=== PATIENT | male | born 1950 | race African-American/Black ===

== ENCOUNTER 2022-07-12 13:13 | Inpatient (IN) | payer MEDICARE, MEDICAID ==
[~2022-07-12] VITALS: Ht 170.2 cm; Wt 61.3 kg
[2022-07-12] MEDS ORDERED: IOHEXOL-350 100 ML BOTTLE ONE ×3 (13:34→23:26)
[2022-07-12 14:34] LABS: BASOPHILS % 0.5 % (0.0-2.0); EOSINOPHILS % 2.5 % (0.0-5.0); HEMATOCRIT. 35.1 % (42.0-52.0); LYMPHOCYTES % 25.1 % (20.0-50.0); MEAN CORPUSCULAR HEMOGLOBIN 30.7 pg (28.0-32.0); MEAN CORPUSCULAR VOLUME 97.6 fL (80.0-94.0); MEAN PLATELET VOLUME 11.1 fl (7.4-10.4); MONOCYTES % 13.2 % (2.0-8.0); NEUTROPHILS % 58.7 % (40.0-76.0); PLATELET 110 x1000/uL (130-400); RED BLOOD CELL COUNT 3.59 mill/uL (4.7-6.1); RED CELL DISTRIBUTION WIDTH 17.4 % (11.6-14.6)
[2022-07-12 14:44] LABS: CHLORIDE 87 mEq/L (98-107)
[2022-07-12] MEDS ORDERED: PIPERACILLIN/TAZ 3.375G PREMIX 50 ML IV ONE (14:45)
[2022-07-12 14:52] LABS: ETHANOL BLOOD < 10 mg/dL
[2022-07-12] MEDS: VANCOMYCIN 1G PREMIX 200 ML IV SCH ×2 (15:14→20:14)
[2022-07-12 16:26] LABS: BG BASE EXCESS 13.8 mmol/L (-2.0-2.0); BG CARBOXYHEMOGLOBIN 0.8 % (0.5-1.5); BG DEOXYHEMOGLOBIN 2.3 % (0.0-5.0); BG HCO3 ACT 37.4 mmol/L (22.0-26.0); BG METHEMOGLOBIN 0.1 % (0.0-1.5); BG OXYGEN SATURATION 97.7 % (92.0-98.5); BG OXYHEMOGLOBIN 96.8 % (94.0-97.0); BG PCO2 42.2 mmHg (35.0-45.0); BG PH 7.565 (7.350-7.450); BG PO2 92.1 mmHg (75.0-100.0); BG SAMPLE SITE RIGHT BRACHIAL; BG TOTAL HEMOGLOBIN 12.5 g/dL (12.0-18.0); BG VENT MODE VENT - AC
[2022-07-12] MEDS ORDERED: PROPOFOL 10MG/ML 100ML 100 ML IV SCH (17:45)
[2022-07-12 17:49] LABS: CLARITY URINE CLEAR (CLEAR); COLOR URINE YELLOW (YELLOW); KETONES URINE NEGATIVE (NEGATIVE); LEUKOCYTE ESTERASE URINE 1+ (NEGATIVE); NITRITE URINE NEGATIVE (NEGATIVE); OCCULT BLOOD URINE 1+ (NEGATIVE); PH URINE 8.5 (4.5-8.0); PROTEIN URINE 2+ (NEGATIVE)
[2022-07-12] MEDS ORDERED: LORAZEPAM 2MG/ML CPJ ONE (17:51)
[2022-07-12] MEDS ORDERED: LEVETIRACETAM 500MG PREMIX 100 ML IV ONE (18:00)
[2022-07-12] MEDS ORDERED: LORAZEPAM 2MG/ML CPJ IV ONE (18:00)
[2022-07-12 18:05] LABS: *AMPHETAMINES SCREEN URINE NEGATIVE (NEGATIVE); *BARBITURATES SCREEN URINE NEGATIVE (NEGATIVE); *BENZODIAZEPINES SCREEN URINE NEGATIVE (NEGATIVE); *COCAINE SCREEN URINE NEGATIVE (NEGATIVE); CANNABINOID URINE SCREEN NEGATIVE (NEGATIVE); METHADONE URINE SCREEN NEGATIVE (NEGATIVE); OPIATES URINE SCREEN NEGATIVE (NEGATIVE); PHENCYCLIDINE URINE SCREEN NEGATIVE (NEGATIVE)
[2022-07-12] MEDS ORDERED: ONDANSETRON HCL 4MG/2ML INJ IV PRN (18:30)
[2022-07-12] MEDS ORDERED: IPRATROPIUM/ALBUTEROL 0.5-3(2.5)MG/3ML NEB HHN PRN (18:30)
[2022-07-12 18:49] LABS: BG BASE EXCESS 10.8 mmol/L (-2.0-2.0); BG CARBOXYHEMOGLOBIN 0.5 % (0.5-1.5); BG FRACTION INSPIRED OXYGEN 100; BG HCO3 ACT 34.7 mmol/L (22.0-26.0); BG METHEMOGLOBIN 0.1 % (0.0-1.5); BG OXYHEMOGLOBIN 98.4 % (94.0-97.0); BG PCO2 43.2 mmHg (35.0-45.0); BG PH 7.523 (7.350-7.450); BG PO2 172.1 mmHg (75.0-100.0); BG SAMPLE SITE LEFT RADIAL; BG TOTAL HEMOGLOBIN 12.7 g/dL (12.0-18.0); BG VENT MODE VENT - AC
[2022-07-12] MEDS ORDERED: ENOXAPARIN 40MG/0.4ML SYR SUBCUT SCH (20:00)
[2022-07-12] MEDS ORDERED: VANCOMYCIN 750MG PMX (XELLIA) 150 ML IV SCH (20:00)
[2022-07-12] MEDS: IPRATROPIUM/ALBUTEROL 0.5-3(2.5)MG/3ML NEB HHN SCH (20:07)
[2022-07-12] MEDS: LEVETIRACETAM 500MG PREMIX 100 ML IV SCH (21:12)
[2022-07-12] MEDS: FAMOTIDINE 20MG/2ML VIAL IV SCH (21:17)
[2022-07-12 22:56] VITALS: BP 93/59
[2022-07-12 23:00] VITALS: BP 99/52
[2022-07-12 23:15] VITALS: BP 109/63
[2022-07-12 23:30] VITALS: BP_SYST 106; BP_SYST 109; BP_DIAS 59; BP_DIAS 63
[2022-07-12 23:45] VITALS: BP 107/56
[2022-07-13] VITALS (81 sets, daily range): BP systolic 91–117; BP diastolic 52–65
[2022-07-13] MEDS: IPRATROPIUM/ALBUTEROL 0.5-3(2.5)MG/3ML NEB HHN SCH ×6 (00:28→20:55)
[2022-07-13] MEDS: PIPERACILLIN/TAZOBACTAM 3.375 G in DEXTROSE 5% WATER 50 ML IV SCH ×4 (00:51→22:13)
[2022-07-13] MEDS ORDERED: PHENYLEPHRINE 100 MG in DEXT 5% WATER 240 ML IV PRN (01:15)
[2022-07-13 05:37] LABS: BASOPHILS % 0.3 % (0.0-2.0); EOSINOPHILS % 0.1 % (0.0-5.0); HEMATOCRIT. 37.4 % (42.0-52.0); HEMOGLOBIN. 12.1 g/dL (14.0-18.0); LYMPHOCYTES % 7.5 % (20.0-50.0); MEAN CORPUSCULAR HEMOGLOBIN 30.5 pg (28.0-32.0); MEAN PLATELET VOLUME 10.7 fl (7.4-10.4); MONOCYTES % 9.6 % (2.0-8.0); NEUTROPHILS % 82.5 % (40.0-76.0); PLATELET 122 x1000/uL (130-400); RED BLOOD CELL COUNT 3.97 mill/uL (4.7-6.1); RED CELL DISTRIBUTION WIDTH 17.1 % (11.6-14.6)
[2022-07-13 05:48] LABS: CHLORIDE 95 mEq/L (98-107)
[2022-07-13 06:18] LABS: CORTISOL 23.5 ucg/dL
[2022-07-13 06:29] LABS: VITAMIN B12 SERUM 763 pg/mL (211-911)
[2022-07-13 08:50] LABS: BG BASE EXCESS 15.5 mmol/L (-2.0-2.0); BG CARBOXYHEMOGLOBIN 0.6 % (0.5-1.5); BG DEOXYHEMOGLOBIN 1.3 % (0.0-5.0); BG FRACTION INSPIRED OXYGEN 80; BG HCO3 ACT 40.8 mmol/L (22.0-26.0); BG METHEMOGLOBIN 0.4 % (0.0-1.5); BG OXYGEN SATURATION 98.7 % (92.0-98.5); BG OXYHEMOGLOBIN 97.7 % (94.0-97.0); BG PCO2 52.3 mmHg (35.0-45.0); BG PO2 122.7 mmHg (75.0-100.0); BG SAMPLE SITE RIGHT RADIAL; BG TOTAL HEMOGLOBIN 12.9 g/dL (12.0-18.0); BG VENT MODE VENT - AC
[2022-07-13] MEDS ORDERED: POTASSIUM CHLORIDE 20MEQ TABLET SR PO NR (09:00)
[2022-07-13] MEDS: LEVETIRACETAM 500MG PREMIX 100 ML IV SCH ×2 (09:45→21:02)
[2022-07-13] MEDS: FAMOTIDINE 20MG/2ML VIAL IV SCH ×2 (09:45→21:02)
[2022-07-13] MEDS ORDERED: POTASSIUM CHLORIDE INJ 40 MEQ in DEXT 5% WATER 250 ML IV NR (12:00)
[2022-07-13] MEDS: VANCOMYCIN 750MG PREMIX 150 ML IV SCH ×2 (12:00→23:24)
[2022-07-13] MEDS: ENOXAPARIN 60MG/0.6ML SYR SUBCUT SCH ×2 (13:56→21:03)
[2022-07-13] MEDS: LORAZEPAM 2MG/ML CPJ IV PRN (22:26)
[2022-07-14] VITALS (83 sets, daily range): BP systolic 70–116; BP diastolic 46–80
[2022-07-14] MEDS: IPRATROPIUM/ALBUTEROL 0.5-3(2.5)MG/3ML NEB HHN SCH ×6 (00:12→20:58)
[2022-07-14] MEDS ORDERED: PHENYLEPHRINE 100 MG in DEXT 5% WATER 240 ML IV PRN (04:30)
[2022-07-14] MEDS ORDERED: PHENYLEPHRINE 50 MG in DEXT 5% WATER 245 ML IV PRN (04:30)
[2022-07-14] MEDS: PIPERACILLIN/TAZOBACTAM 3.375 G in DEXTROSE 5% WATER 50 ML IV SCH ×3 (05:00→21:41)
[2022-07-14 06:46] LABS: HEMOGLOBIN 12.3 g/dL (14.0-18.0); MEAN CORPUSCULAR HEMOGLOBIN 30.6 pg (28.0-32.0); MEAN CORPUSCULAR VOLUME 94.9 fL (80.0-94.0); PLATELET 114 x1000/uL (130-400); RED BLOOD CELL COUNT 4.01 mill/uL (4.7-6.1); RED CELL DISTRIBUTION WIDTH 17.6 % (11.6-14.6)
[2022-07-14 06:51] LABS: INR 1.4; PROTHROMBIN TIME 14.8 sec (9.6-11.0)
[2022-07-14 07:17] LABS: CHLORIDE 99 mEq/L (98-107)
[2022-07-14 07:31] LABS: PHOSPHORUS 2.9 mg/dL (2.5-4.9)
[2022-07-14 07:36] LABS: BG BASE EXCESS 9.8 mmol/L (-2.0-2.0); BG CARBOXYHEMOGLOBIN 0.9 % (0.5-1.5); BG HCO3 ACT 35.9 mmol/L (22.0-26.0); BG METHEMOGLOBIN 0.3 % (0.0-1.5); BG OXYGEN SATURATION 92.9 % (92.0-98.5); BG OXYHEMOGLOBIN 91.8 % (94.0-97.0); BG PCO2 54.4 mmHg (35.0-45.0); BG PH 7.437 (7.350-7.450); BG PO2 67.7 mmHg (75.0-100.0); BG SAMPLE SITE RIGHT RADIAL; BG TOTAL HEMOGLOBIN 13.7 g/dL (12.0-18.0); BG VENT MODE VENT - AC
[2022-07-14] MEDS: FAMOTIDINE 20MG/2ML VIAL IV SCH ×2 (08:34→20:58)
[2022-07-14] MEDS: LEVETIRACETAM 500MG PREMIX 100 ML IV SCH (08:34)
[2022-07-14] MEDS: ACETAMINOPHEN 325MG TABLET PO PRN ×2 (08:34→16:07)
[2022-07-14] MEDS: ENOXAPARIN 60MG/0.6ML SYR SUBCUT SCH ×2 (08:34→20:58)
[2022-07-14] MEDS ORDERED: SODIUM CHLORIDE 0.9% 500 ML IV SCH (11:00)
[2022-07-14 16:17] LABS: CREATINE KINASE MB FRACTION 1.1 ng/mL (0.5-3.6)
[2022-07-14] MEDS: LEVETIRACETAM 750 MG in SODIUM CHLORIDE 0.9% 100 ML IV SCH (20:57)
[2022-07-14] MEDS: VANCOMYCIN 750MG PREMIX 150 ML IV SCH (23:27)
[2022-07-15] VITALS (83 sets, daily range): BP systolic 76–103; BP diastolic 44–73
[2022-07-15] MEDS: IPRATROPIUM/ALBUTEROL 0.5-3(2.5)MG/3ML NEB HHN SCH ×6 (00:26→21:11)
[2022-07-15 05:20] LABS: HEMATOCRIT. 37.9 % (42.0-52.0); MEAN CORPUSCULAR HEMOGLOBIN 29.9 pg (28.0-32.0); MEAN CORPUSCULAR VOLUME 94.6 fL (80.0-94.0); MEAN PLATELET VOLUME 10.1 fl (7.4-10.4); PLATELET 108 x1000/uL (130-400); RED BLOOD CELL COUNT 4.01 mill/uL (4.7-6.1); RED CELL DISTRIBUTION WIDTH 17.8 % (11.6-14.6)
[2022-07-15 05:27] LABS: CHLORIDE 102 mEq/L (98-107)
[2022-07-15] MEDS: PIPERACILLIN/TAZOBACTAM 3.375 G in DEXTROSE 5% WATER 50 ML IV SCH ×3 (05:42→22:59)
[2022-07-15 08:59] LABS: BG BASE EXCESS 9.8 mmol/L (-2.0-2.0); BG CARBOXYHEMOGLOBIN 0.6 % (0.5-1.5); BG DEOXYHEMOGLOBIN 5.9 % (0.0-5.0); BG FRACTION INSPIRED OXYGEN 55; BG HCO3 ACT 35.5 mmol/L (22.0-26.0); BG METHEMOGLOBIN 0.3 % (0.0-1.5); BG OXYHEMOGLOBIN 93.2 % (94.0-97.0); BG PCO2 52.2 mmHg (35.0-45.0); BG PO2 69.2 mmHg (75.0-100.0); BG SAMPLE SITE RIGHT BRACHIAL; BG TOTAL HEMOGLOBIN 13.1 g/dL (12.0-18.0); BG VENT MODE VENT - AC
[2022-07-15] MEDS: FAMOTIDINE 20MG/2ML VIAL IV SCH ×2 (09:48→22:59)
[2022-07-15] MEDS: LEVETIRACETAM 750 MG in SODIUM CHLORIDE 0.9% 100 ML IV SCH ×2 (09:54→23:00)
[2022-07-15] MEDS: ENOXAPARIN 60MG/0.6ML SYR SUBCUT SCH ×2 (09:54→23:00)
[2022-07-15 10:26] LABS: PLATELET ESTIMATE SLIGHTLY DECREASED
[2022-07-15] MEDS: LORAZEPAM 2MG/ML CPJ IV PRN (13:54)
[2022-07-15] MEDS: VANCOMYCIN 750MG PREMIX 150 ML IV SCH (18:18)
[2022-07-16] VITALS (55 sets, daily range): BP systolic 83–102; BP diastolic 47–64
[2022-07-16] MEDS: IPRATROPIUM/ALBUTEROL 0.5-3(2.5)MG/3ML NEB HHN SCH ×6 (00:42→20:49)
[2022-07-16] MEDS: PIPERACILLIN/TAZOBACTAM 3.375 G in DEXTROSE 5% WATER 50 ML IV SCH (05:37)
[2022-07-16 06:07] LABS: CHLORIDE 103 mEq/L (98-107)
[2022-07-16] MEDS ORDERED: POTASSIUM CHLORIDE 20MEQ TABLET SR PO NR (09:30)
[2022-07-16] MEDS: ENOXAPARIN 60MG/0.6ML SYR SUBCUT SCH ×2 (10:01→20:09)
[2022-07-16] MEDS: LEVETIRACETAM 750 MG in SODIUM CHLORIDE 0.9% 100 ML IV SCH (10:01)
[2022-07-16] MEDS: FAMOTIDINE 20MG/2ML VIAL IV SCH ×2 (10:01→20:09)
[2022-07-16] MEDS: LORAZEPAM 2MG/ML CPJ IV PRN ×2 (11:25→20:13)
[2022-07-16] MEDS ORDERED: POTASSIUM CHLORIDE 20MEQ/PACKET PO SCH (13:15)
[2022-07-16] MEDS: AMPICILLIN 2,000 MG in SODIUM CHLORIDE 0.9% 100 ML IV SCH ×2 (14:39→20:09)
[2022-07-16] MEDS: CEFTRIAXONE 2 G in DEXTROSE 5% WATER 50 ML IV SCH (16:26)
[2022-07-16] MEDS ORDERED: VANCOMYCIN 750MG PREMIX 150 ML IV SCH (18:00)
[2022-07-16] MEDS: METRONIDAZOLE 500MG TABLET PO SCH (20:09)
[2022-07-16] MEDS: LEVETIRACETAM 1000MG PREMIX 100 ML IV SCH (21:01)
[2022-07-17] VITALS (37 sets, daily range): BP systolic 84–111; BP diastolic 39–86
[2022-07-17] MEDS: IPRATROPIUM/ALBUTEROL 0.5-3(2.5)MG/3ML NEB HHN SCH ×6 (00:26→20:54)
[2022-07-17] MEDS: AMPICILLIN 2,000 MG in SODIUM CHLORIDE 0.9% 100 ML IV SCH ×4 (03:00→20:41)
[2022-07-17] MEDS: CEFTRIAXONE 2 G in DEXTROSE 5% WATER 50 ML IV SCH ×2 (05:28→18:32)
[2022-07-17 05:50] LABS: BASOPHILS % 0.5 % (0.0-2.0); EOSINOPHILS % 2.3 % (0.0-5.0); HEMATOCRIT. 38.3 % (42.0-52.0); HEMOGLOBIN. 12.2 g/dL (14.0-18.0); LYMPHOCYTES % 7.3 % (20.0-50.0); MEAN CORPUSCULAR HEMOGLOBIN 30.3 pg (28.0-32.0); MEAN CORPUSCULAR VOLUME 95.6 fL (80.0-94.0); MONOCYTES % 11.9 % (2.0-8.0); RED BLOOD CELL COUNT 4.01 mill/uL (4.7-6.1); RED CELL DISTRIBUTION WIDTH 17.8 % (11.6-14.6)
[2022-07-17 06:06] LABS: CHLORIDE 105 mEq/L (98-107)
[2022-07-17 08:47] LABS: PLATELET 78 x1000/uL (130-400)
[2022-07-17] MEDS: ENOXAPARIN 60MG/0.6ML SYR SUBCUT SCH ×2 (09:00→20:40)
[2022-07-17] MEDS: FAMOTIDINE 20MG/2ML VIAL IV SCH ×2 (09:09→20:37)
[2022-07-17] MEDS: METRONIDAZOLE 500MG TABLET PO SCH ×2 (09:09→20:37)
[2022-07-17] MEDS: LEVETIRACETAM 1000MG PREMIX 100 ML IV SCH ×2 (09:09→20:41)
[2022-07-17] MEDS: LORAZEPAM 2MG/ML CPJ IV PRN (18:32)
[2022-07-18] VITALS (51 sets, daily range): BP systolic 80–114; BP diastolic 50–74
[2022-07-18] MEDS: IPRATROPIUM/ALBUTEROL 0.5-3(2.5)MG/3ML NEB HHN SCH ×6 (00:29→19:53)
[2022-07-18] MEDS: AMPICILLIN 2,000 MG in SODIUM CHLORIDE 0.9% 100 ML IV SCH ×4 (03:28→21:24)
[2022-07-18 05:27] LABS: BASOPHILS % 0.3 % (0.0-2.0); EOSINOPHILS % 4.9 % (0.0-5.0); HEMATOCRIT. 37.4 % (42.0-52.0); HEMOGLOBIN. 11.9 g/dL (14.0-18.0); LYMPHOCYTES % 8.2 % (20.0-50.0); MEAN CORPUSCULAR VOLUME 94.7 fL (80.0-94.0); MEAN PLATELET VOLUME 10.2 fl (7.4-10.4); MONOCYTES % 13.8 % (2.0-8.0); NEUTROPHILS % 72.8 % (40.0-76.0); PLATELET 114 x1000/uL (130-400); RED BLOOD CELL COUNT 3.96 mill/uL (4.7-6.1); RED CELL DISTRIBUTION WIDTH 17.1 % (11.6-14.6)
[2022-07-18] MEDS: CEFTRIAXONE 2 G in DEXTROSE 5% WATER 50 ML IV SCH ×2 (05:36→17:08)
[2022-07-18 05:37] LABS: CHLORIDE 108 mEq/L (98-107)
[2022-07-18] MEDS: LORAZEPAM 2MG/ML CPJ IV PRN ×2 (06:33→11:06)
[2022-07-18] MEDS: LEVETIRACETAM 1000MG PREMIX 100 ML IV SCH ×2 (08:54→21:24)
[2022-07-18] MEDS: METRONIDAZOLE 500MG TABLET PO SCH ×2 (08:54→21:25)
[2022-07-18] MEDS: FAMOTIDINE 20MG/2ML VIAL IV SCH ×2 (08:54→21:24)
[2022-07-18] MEDS: ENOXAPARIN 60MG/0.6ML SYR SUBCUT SCH ×2 (08:55→21:25)
[2022-07-18 09:12] LABS: BG BASE EXCESS 7.7 mmol/L (-2.0-2.0); BG CARBOXYHEMOGLOBIN 1.1 % (0.5-1.5); BG DEOXYHEMOGLOBIN 3.7 % (0.0-5.0); BG FRACTION INSPIRED OXYGEN 55; BG HCO3 ACT 33.6 mmol/L (22.0-26.0); BG METHEMOGLOBIN 0.3 % (0.0-1.5); BG OXYGEN SATURATION 96.2 % (92.0-98.5); BG OXYHEMOGLOBIN 94.9 % (94.0-97.0); BG PCO2 52.8 mmHg (35.0-45.0); BG PH 7.421 (7.350-7.450); BG PO2 81.9 mmHg (75.0-100.0); BG SAMPLE SITE RIGHT RADIAL; BG TOTAL HEMOGLOBIN 12.3 g/dL (12.0-18.0)
[2022-07-18 19:30] LABS: TOTAL IRON BINDING CAPACITY 259 ug/dL (250-450)
[2022-07-19] VITALS (69 sets, daily range): BP systolic 85–117; BP diastolic 45–74
[2022-07-19] MEDS: IPRATROPIUM/ALBUTEROL 0.5-3(2.5)MG/3ML NEB HHN SCH ×7 (00:01→20:45)
[2022-07-19] MEDS: LORAZEPAM 2MG/ML CPJ IV PRN ×2 (01:42→12:18)
[2022-07-19] MEDS: AMPICILLIN 2,000 MG in SODIUM CHLORIDE 0.9% 100 ML IV SCH ×4 (03:05→20:44)
[2022-07-19 03:59] LABS: BASOPHILS % 0.5 % (0.0-2.0); EOSINOPHILS % 5.8 % (0.0-5.0); HEMATOCRIT. 35.4 % (42.0-52.0); HEMOGLOBIN. 11.4 g/dL (14.0-18.0); LYMPHOCYTES % 9.1 % (20.0-50.0); MEAN CORPUSCULAR HEMOGLOBIN 30.3 pg (28.0-32.0); MEAN CORPUSCULAR VOLUME 94.2 fL (80.0-94.0); MEAN PLATELET VOLUME 10.2 fl (7.4-10.4); MONOCYTES % 14.3 % (2.0-8.0); NEUTROPHILS % 70.3 % (40.0-76.0); PLATELET 127 x1000/uL (130-400); RED BLOOD CELL COUNT 3.76 mill/uL (4.7-6.1); RED CELL DISTRIBUTION WIDTH 17.1 % (11.6-14.6)
[2022-07-19 04:05] LABS: CHLORIDE 109 mEq/L (98-107)
[2022-07-19 04:13] LABS: INR 1.3; PROTHROMBIN TIME 13.4 sec (9.6-11.0)
[2022-07-19] MEDS: CEFTRIAXONE 2 G in DEXTROSE 5% WATER 50 ML IV SCH ×2 (05:23→17:39)
[2022-07-19] MEDS: ACETAMINOPHEN 325MG TABLET PO PRN (07:38)
[2022-07-19] MEDS: FAMOTIDINE 20MG/2ML VIAL IV SCH ×2 (08:58→20:45)
[2022-07-19] MEDS: LEVETIRACETAM 1000MG PREMIX 100 ML IV SCH ×2 (08:58→20:45)
[2022-07-19] MEDS: METRONIDAZOLE 500MG TABLET PO SCH ×2 (08:58→20:45)
[2022-07-19] MEDS: ENOXAPARIN 60MG/0.6ML SYR SUBCUT SCH ×2 (08:58→20:45)
[2022-07-20] VITALS (85 sets, daily range): BP systolic 85–114; BP diastolic 53–76
[2022-07-20] MEDS: IPRATROPIUM/ALBUTEROL 0.5-3(2.5)MG/3ML NEB HHN SCH ×6 (00:40→20:36)
[2022-07-20] MEDS: AMPICILLIN 2,000 MG in SODIUM CHLORIDE 0.9% 100 ML IV SCH ×2 (03:19→08:16)
[2022-07-20] MEDS: ACETAMINOPHEN 325MG TABLET PO PRN (04:03)
[2022-07-20 05:23] LABS: INR 1.3; PROTHROMBIN TIME 13.7 sec (9.6-11.0)
[2022-07-20 05:25] LABS: BASOPHILS % 0.6 % (0.0-2.0); EOSINOPHILS % 4.6 % (0.0-5.0); HEMATOCRIT. 38.6 % (42.0-52.0); LYMPHOCYTES % 9.9 % (20.0-50.0); MEAN CORPUSCULAR HEMOGLOBIN 30.2 pg (28.0-32.0); MEAN CORPUSCULAR VOLUME 96.6 fL (80.0-94.0); MEAN PLATELET VOLUME 10.6 fl (7.4-10.4); MONOCYTES % 13.7 % (2.0-8.0); NEUTROPHILS % 71.2 % (40.0-76.0); PLATELET 134 x1000/uL (130-400); RED BLOOD CELL COUNT 3.99 mill/uL (4.7-6.1); RED CELL DISTRIBUTION WIDTH 17.3 % (11.6-14.6)
[2022-07-20 05:38] LABS: CHLORIDE 110 mEq/L (98-107)
[2022-07-20] MEDS: CEFTRIAXONE 2 G in DEXTROSE 5% WATER 50 ML IV SCH (06:11)
[2022-07-20] MEDS: LEVETIRACETAM 1000MG PREMIX 100 ML IV SCH ×2 (08:16→20:43)
[2022-07-20] MEDS: FAMOTIDINE 20MG/2ML VIAL IV SCH ×2 (08:16→20:43)
[2022-07-20] MEDS: METRONIDAZOLE 500MG TABLET PO SCH (08:16)
[2022-07-20] MEDS: ENOXAPARIN 60MG/0.6ML SYR SUBCUT SCH ×2 (08:17→21:00)
[2022-07-20] MEDS: FUROSEMIDE 40MG/4ML VIAL IVP SCH (11:36)
[2022-07-20] MEDS ORDERED: VANCOMYCIN 1.25GM PMX (XELLIA) 250 ML IV NR (14:00)
[2022-07-20 15:09] LABS: CLARITY URINE CLEAR (CLEAR); COLOR URINE YELLOW (YELLOW); KETONES URINE NEGATIVE (NEGATIVE); LEUKOCYTE ESTERASE URINE TRACE (NEGATIVE); NITRITE URINE NEGATIVE (NEGATIVE); OCCULT BLOOD URINE 3+ (NEGATIVE); PH URINE 7.5 (4.5-8.0); PROTEIN URINE 1+ (NEGATIVE); SPECIFIC GRAVITY URINE 1.014 (1.005-1.030); UROBILINOGEN URINE 0.2 E.U./dL (0.2-1.0)
[2022-07-21] VITALS (68 sets, daily range): BP systolic 62–163; BP diastolic 20–108
[2022-07-21] MEDS: VANCOMYCIN 750MG PREMIX 150 ML IV SCH ×2 (00:07→11:45)
[2022-07-21] MEDS: IPRATROPIUM/ALBUTEROL 0.5-3(2.5)MG/3ML NEB HHN SCH ×6 (00:45→20:20)
[2022-07-21 03:29] LABS: HEMATOCRIT. 34.5 % (42.0-52.0); HEMOGLOBIN. 11.1 g/dL (14.0-18.0); MEAN CORPUSCULAR HEMOGLOBIN 30.1 pg (28.0-32.0); MEAN CORPUSCULAR VOLUME 93.8 fL (80.0-94.0); MEAN PLATELET VOLUME 9.8 fl (7.4-10.4); PLATELET 166 x1000/uL (130-400); RED BLOOD CELL COUNT 3.68 mill/uL (4.7-6.1); RED CELL DISTRIBUTION WIDTH 17.1 % (11.6-14.6)
[2022-07-21 03:44] LABS: INR 1.3
[2022-07-21 04:19] LABS: CHLORIDE 109 mEq/L (98-107)
[2022-07-21 07:01] LABS: PLATELET ESTIMATE NORMAL
[2022-07-21] MEDS: FUROSEMIDE 40MG/4ML VIAL IVP SCH (08:09)
[2022-07-21] MEDS: FAMOTIDINE 20MG/2ML VIAL IV SCH ×2 (08:11→21:46)
[2022-07-21] MEDS: LEVETIRACETAM 1000MG PREMIX 100 ML IV SCH ×2 (08:11→21:45)
[2022-07-21] MEDS ORDERED: LIDOCAINE HCL/EPINEPHRINE 1%-EPI 1:100,000 20 ML VIAL ONE (08:32)
[2022-07-21] MEDS: ENOXAPARIN 60MG/0.6ML SYR SUBCUT SCH ×2 (09:00→21:46)
[2022-07-21] MEDS ORDERED: ROCURONIUM BROMIDE 10MG/ML VIAL 5ML IV ONE ×2 (09:07→09:43)
[2022-07-21] MEDS ORDERED: ONDANSETRON HCL 4MG/2ML INJ ONE (09:32)
[2022-07-21] MEDS ORDERED: DEXAMETHASONE 4MG/ML 1ML VIAL ONE (09:32)
[2022-07-21] MEDS ORDERED: PHENYLEPHRINE HCL 10 MG/ML 1ML (IV VIAL) IV ONE (09:32)
[2022-07-21] MEDS: PHENYLEPHRINE 50 MG in DEXT 5% WATER 245 ML IV PRN (12:54)
[2022-07-21] MEDS: METOCLOPRAMIDE HCL 10MG/2ML VIAL IV SCH (17:28)
[2022-07-22] VITALS (96 sets, daily range): BP systolic 82–152; BP diastolic 49–86
[2022-07-22] MEDS: METOCLOPRAMIDE HCL 10MG/2ML VIAL IV SCH ×4 (00:15→17:37)
[2022-07-22] MEDS: VANCOMYCIN 750MG PREMIX 150 ML IV SCH ×2 (00:15→17:38)
[2022-07-22] MEDS: LORAZEPAM 2MG/ML CPJ IV PRN (00:15)
[2022-07-22] MEDS: IPRATROPIUM/ALBUTEROL 0.5-3(2.5)MG/3ML NEB HHN SCH ×5 (00:38→20:38)
[2022-07-22 04:52] LABS: HEMOGLOBIN. 11.9 g/dL (14.0-18.0); MEAN CORPUSCULAR HEMOGLOBIN 30.2 pg (28.0-32.0); MEAN CORPUSCULAR VOLUME 93.8 fL (80.0-94.0); PLATELET 228 x1000/uL (130-400); RED BLOOD CELL COUNT 3.95 mill/uL (4.7-6.1)
[2022-07-22 04:57] LABS: CHLORIDE 107 mEq/L (98-107)
[2022-07-22 05:03] LABS: INR 1.3; PROTHROMBIN TIME 13.3 sec (9.6-11.0)
[2022-07-22 05:41] LABS: NUCLEATED RED BLOOD CELLS 1 /100 WBC; PLATELET ESTIMATE NORMAL
[2022-07-22] MEDS: PHENYLEPHRINE 50 MG in DEXT 5% WATER 245 ML IV PRN ×2 (05:45→17:42)
[2022-07-22] MEDS: FAMOTIDINE 20MG/2ML VIAL IV SCH ×2 (08:36→21:54)
[2022-07-22] MEDS: FUROSEMIDE 40MG/4ML VIAL IVP SCH (08:37)
[2022-07-22] MEDS: ENOXAPARIN 60MG/0.6ML SYR SUBCUT SCH ×2 (08:38→21:54)
[2022-07-22] MEDS: MIDODRINE HCL 5MG TABLET PO SCH ×3 (09:45→17:43)
[2022-07-22] MEDS: LEVETIRACETAM 1000MG PREMIX 100 ML IV SCH ×2 (10:42→21:54)
[2022-07-22] MEDS ORDERED: MIDAZOLAM HCL 5 MG/5 ML VIAL ONE (12:12)
[2022-07-22] MEDS ORDERED: FENTANYL CITRATE/PF 50MCG/ML 2ML VIAL ONE (12:12)
[2022-07-22 12:22] LABS: CHLORIDE 108 mEq/L (98-107)
[2022-07-22] MEDS ORDERED: MIDAZOLAM HCL 2 MG/2 ML VIAL IV PRN (12:30)
[2022-07-22] MEDS ORDERED: FENTANYL CITRATE/PF 50MCG/ML 2ML VIAL IV PRN (12:31)
[2022-07-23] VITALS (63 sets, daily range): BP systolic 65–132; BP diastolic 36–86
[2022-07-23] MEDS: METOCLOPRAMIDE HCL 10MG/2ML VIAL IV SCH ×4 (00:21→18:21)
[2022-07-23] MEDS: IPRATROPIUM/ALBUTEROL 0.5-3(2.5)MG/3ML NEB HHN SCH ×7 (00:50→23:49)
[2022-07-23 04:52] LABS: CHLORIDE 109 mEq/L (98-107)
[2022-07-23 04:57] LABS: BASOPHILS % 0.2 % (0.0-2.0); EOSINOPHILS % 0.7 % (0.0-5.0); HEMATOCRIT. 38.2 % (42.0-52.0); HEMOGLOBIN. 12.1 g/dL (14.0-18.0); MEAN CORPUSCULAR HEMOGLOBIN 30.1 pg (28.0-32.0); MEAN CORPUSCULAR VOLUME 94.6 fL (80.0-94.0); MEAN PLATELET VOLUME 9.8 fl (7.4-10.4); MONOCYTES % 9.3 % (2.0-8.0); NEUTROPHILS % 81.8 % (40.0-76.0); PLATELET 232 x1000/uL (130-400); RED BLOOD CELL COUNT 4.03 mill/uL (4.7-6.1); RED CELL DISTRIBUTION WIDTH 17.4 % (11.6-14.6)
[2022-07-23] MEDS: PHENYLEPHRINE 50 MG in DEXT 5% WATER 245 ML IV PRN ×2 (06:02→18:35)
[2022-07-23 08:29] LABS: BG BASE EXCESS 5.9 mmol/L (-2.0-2.0); BG CARBOXYHEMOGLOBIN 0.6 % (0.5-1.5); BG DEOXYHEMOGLOBIN 5.3 % (0.0-5.0); BG HCO3 ACT 30.2 mmol/L (22.0-26.0); BG METHEMOGLOBIN 0.3 % (0.0-1.5); BG OXYGEN SATURATION 94.7 % (92.0-98.5); BG OXYHEMOGLOBIN 93.8 % (94.0-97.0); BG PCO2 42.9 mmHg (35.0-45.0); BG PH 7.466 (7.350-7.450); BG PO2 72.7 mmHg (75.0-100.0); BG SAMPLE SITE RIGHT RADIAL; BG VENT MODE VENT - AC
[2022-07-23] MEDS: ENOXAPARIN 60MG/0.6ML SYR SUBCUT SCH ×2 (08:57→21:35)
[2022-07-23] MEDS: FAMOTIDINE 20MG/2ML VIAL IV SCH ×2 (08:58→21:35)
[2022-07-23] MEDS: MIDODRINE HCL 5MG TABLET PO SCH ×4 (08:58→21:35)
[2022-07-23] MEDS: LEVETIRACETAM 1000MG PREMIX 100 ML IV SCH ×2 (08:59→21:36)
[2022-07-23] MEDS: FUROSEMIDE 40MG/4ML VIAL IVP SCH (09:00)
[2022-07-23] MEDS: VANCOMYCIN 750MG PREMIX 150 ML IV SCH (12:10)
[2022-07-23] MEDS: CEFEPIME 1,000 MG in DEXTROSE 5% WATER 50 ML IV SCH (15:29)
[2022-07-23] MEDS: ACETAMINOPHEN 325MG TABLET PO PRN (15:35)
[2022-07-24] VITALS (95 sets, daily range): BP systolic 72–115; BP diastolic 48–70
[2022-07-24] MEDS: METOCLOPRAMIDE HCL 10MG/2ML VIAL IV SCH ×4 (01:17→17:36)
[2022-07-24] MEDS: PHENYLEPHRINE 50 MG in DEXT 5% WATER 245 ML IV PRN (01:46)
[2022-07-24] MEDS: CEFEPIME 1,000 MG in DEXTROSE 5% WATER 50 ML IV SCH ×2 (03:09→14:13)
[2022-07-24] MEDS: IPRATROPIUM/ALBUTEROL 0.5-3(2.5)MG/3ML NEB HHN SCH ×5 (04:07→21:00)
[2022-07-24] MEDS: VANCOMYCIN 750MG PREMIX 150 ML IV SCH (05:26)
[2022-07-24] MEDS: MIDODRINE HCL 5MG TABLET PO SCH ×3 (05:27→21:14)
[2022-07-24 05:55] LABS: HEMATOCRIT. 35.7 % (42.0-52.0); HEMOGLOBIN. 11.2 g/dL (14.0-18.0); MEAN CORPUSCULAR HEMOGLOBIN 29.7 pg (28.0-32.0); MEAN PLATELET VOLUME 10.6 fl (7.4-10.4); PLATELET 191 x1000/uL (130-400); RED BLOOD CELL COUNT 3.76 mill/uL (4.7-6.1); RED CELL DISTRIBUTION WIDTH 17.1 % (11.6-14.6)
[2022-07-24 06:10] LABS: CHLORIDE 107 mEq/L (98-107)
[2022-07-24] MEDS: LEVETIRACETAM 1000MG PREMIX 100 ML IV SCH ×2 (08:49→21:14)
[2022-07-24] MEDS: FUROSEMIDE 40MG/4ML VIAL IVP SCH (08:50)
[2022-07-24] MEDS: ENOXAPARIN 60MG/0.6ML SYR SUBCUT SCH ×2 (08:50→21:14)
[2022-07-24] MEDS: FAMOTIDINE 20MG/2ML VIAL IV SCH ×2 (08:50→21:14)
[2022-07-24] MEDS: ACETAMINOPHEN 325MG TABLET PO PRN (08:50)
[2022-07-24] MEDS: POLYETHYLENE GLYCOL 3350 (17GM) 1 DOSE PACK PO SCH (14:13)
[2022-07-24] MEDS: MEROPENEM 1,000 MG in SODIUM CHLORIDE 0.9% 100 ML IV SCH (17:36)
[2022-07-25] VITALS (80 sets, daily range): BP systolic 80–150; BP diastolic 47–118
[2022-07-25] MEDS: VANCOMYCIN 750MG PREMIX 150 ML IV SCH ×2 (00:25→18:04)
[2022-07-25] MEDS: MEROPENEM 1,000 MG in SODIUM CHLORIDE 0.9% 100 ML IV SCH ×3 (00:25→15:26)
[2022-07-25] MEDS: METOCLOPRAMIDE HCL 10MG/2ML VIAL IV SCH ×4 (00:26→18:04)
[2022-07-25] MEDS: IPRATROPIUM/ALBUTEROL 0.5-3(2.5)MG/3ML NEB HHN SCH ×6 (00:37→20:02)
[2022-07-25] MEDS: MIDODRINE HCL 5MG TABLET PO SCH ×3 (05:19→21:18)
[2022-07-25 05:46] LABS: HEMATOCRIT. 33.1 % (42.0-52.0); HEMOGLOBIN. 10.8 g/dL (14.0-18.0); MEAN CORPUSCULAR HEMOGLOBIN 30.2 pg (28.0-32.0); MEAN CORPUSCULAR VOLUME 92.8 fL (80.0-94.0); MEAN PLATELET VOLUME 10.4 fl (7.4-10.4); PLATELET 219 x1000/uL (130-400); RED BLOOD CELL COUNT 3.56 mill/uL (4.7-6.1); RED CELL DISTRIBUTION WIDTH 17.1 % (11.6-14.6)
[2022-07-25 05:56] LABS: CHLORIDE 105 mEq/L (98-107)
[2022-07-25 06:35] LABS: NUCLEATED RED BLOOD CELLS 3 /100 WBC; PLATELET ESTIMATE NORMAL
[2022-07-25 08:33] LABS: BG BASE EXCESS 8.4 mmol/L (-2.0-2.0); BG CARBOXYHEMOGLOBIN 0.6 % (0.5-1.5); BG DEOXYHEMOGLOBIN 3.4 % (0.0-5.0); BG HCO3 ACT 32.6 mmol/L (22.0-26.0); BG METHEMOGLOBIN 0.2 % (0.0-1.5); BG OXYGEN SATURATION 96.6 % (92.0-98.5); BG OXYHEMOGLOBIN 95.8 % (94.0-97.0); BG PCO2 43.2 mmHg (35.0-45.0); BG PH 7.495 (7.350-7.450); BG PO2 83.3 mmHg (75.0-100.0); BG SAMPLE SITE RIGHT RADIAL; BG TOTAL HEMOGLOBIN 11.5 g/dL (12.0-18.0); BG VENT MODE VENT - SIMV
[2022-07-25 08:39] LABS: PLATELET ESTIMATE NORMAL
[2022-07-25] MEDS: LEVETIRACETAM 1000MG PREMIX 100 ML IV SCH ×2 (09:34→21:17)
[2022-07-25] MEDS: POLYETHYLENE GLYCOL 3350 (17GM) 1 DOSE PACK PO SCH (09:34)
[2022-07-25] MEDS: FAMOTIDINE 20MG/2ML VIAL IV SCH ×2 (09:34→21:17)
[2022-07-25] MEDS: FUROSEMIDE 40MG/4ML VIAL IVP SCH (09:35)
[2022-07-25] MEDS: ENOXAPARIN 60MG/0.6ML SYR SUBCUT SCH ×2 (09:40→21:18)
[2022-07-25] MEDS: LORAZEPAM 2MG/ML CPJ IV PRN (09:40)
[2022-07-25] MEDS ORDERED: LACTATED RINGERS 500 ML IV NR (10:15)
[2022-07-25] MEDS ORDERED: DIGOXIN 500MCG/2ML AMP IV NR (11:00)
[2022-07-25] MEDS ORDERED: AMIODARONE HCL 900 MG in DEXT 5% WATER 482 ML IV SCH (12:00)
[2022-07-25] MEDS ORDERED: AMIODARONE HCL 150 MG in DEXT 5% WATER 100 ML IV NR (12:00)
[2022-07-25] MEDS: PHENYLEPHRINE 50 MG in DEXT 5% WATER 245 ML IV PRN (13:55)
[2022-07-25] MEDS ORDERED: DIGOXIN 500MCG/2ML AMP IV SCH (14:45)
[2022-07-25] MEDS: ACETAMINOPHEN 325MG TABLET PO PRN (21:18)
[2022-07-26] VITALS (88 sets, daily range): BP systolic 83–138; BP diastolic 40–89
[2022-07-26] MEDS: METOCLOPRAMIDE HCL 10MG/2ML VIAL IV SCH ×5 (00:02→23:30)
[2022-07-26] MEDS: MEROPENEM 1,000 MG in SODIUM CHLORIDE 0.9% 100 ML IV SCH ×4 (00:02→23:30)
[2022-07-26] MEDS: IPRATROPIUM/ALBUTEROL 0.5-3(2.5)MG/3ML NEB HHN SCH ×6 (01:23→19:35)
[2022-07-26] MEDS: MIDODRINE HCL 5MG TABLET PO SCH ×3 (05:19→21:56)
[2022-07-26 06:23] LABS: HEMATOCRIT. 34.4 % (42.0-52.0); MEAN CORPUSCULAR VOLUME 93.7 fL (80.0-94.0); MEAN PLATELET VOLUME 10.8 fl (7.4-10.4); PLATELET 242 x1000/uL (130-400); RED BLOOD CELL COUNT 3.67 mill/uL (4.7-6.1); RED CELL DISTRIBUTION WIDTH 16.8 % (11.6-14.6)
[2022-07-26 06:38] LABS: CHLORIDE 103 mEq/L (98-107)
[2022-07-26 07:26] LABS: DIGOXIN 1.3 ng/mL (0.9-2.0)
[2022-07-26 08:13] LABS: BG BASE EXCESS 10.9 mmol/L (-2.0-2.0); BG CARBOXYHEMOGLOBIN 0.2 % (0.5-1.5); BG DEOXYHEMOGLOBIN 7.4 % (0.0-5.0); BG HCO3 ACT 35.4 mmol/L (22.0-26.0); BG METHEMOGLOBIN 0.3 % (0.0-1.5); BG OXYGEN SATURATION 92.6 % (92.0-98.5); BG OXYHEMOGLOBIN 92.1 % (94.0-97.0); BG PCO2 46.8 mmHg (35.0-45.0); BG PH 7.497 (7.350-7.450); BG PO2 62.3 mmHg (75.0-100.0); BG SAMPLE SITE RIGHT RADIAL; BG VENT MODE VENT - SIMV
[2022-07-26 09:37] LABS: PLATELET ESTIMATE NORMAL
[2022-07-26] MEDS ORDERED: LIDOCAINE HCL 1% 10 MG/ML 10ML VIAL ONE (09:45)
[2022-07-26] MEDS: ENOXAPARIN 60MG/0.6ML SYR SUBCUT SCH ×2 (09:52→21:56)
[2022-07-26] MEDS: POLYETHYLENE GLYCOL 3350 (17GM) 1 DOSE PACK PO SCH (09:53)
[2022-07-26] MEDS: FAMOTIDINE 20MG/2ML VIAL IV SCH ×2 (09:53→21:55)
[2022-07-26] MEDS: FUROSEMIDE 40MG/4ML VIAL IVP SCH (09:53)
[2022-07-26] MEDS: LEVETIRACETAM 1000MG PREMIX 100 ML IV SCH ×2 (09:54→21:56)
[2022-07-26 11:15] LABS: BG CARBOXYHEMOGLOBIN 0.3 % (0.5-1.5); BG HCO3 ACT 33.6 mmol/L (22.0-26.0); BG METHEMOGLOBIN 0.2 % (0.0-1.5); BG OXYGEN SATURATION 89.9 % (92.0-98.5); BG OXYHEMOGLOBIN 89.5 % (94.0-97.0); BG PCO2 45.8 mmHg (35.0-45.0); BG PH 7.483 (7.350-7.450); BG PO2 57.7 mmHg (75.0-100.0); BG SAMPLE SITE RIGHT RADIAL; BG TOTAL HEMOGLOBIN 12.3 g/dL (12.0-18.0); BG VENT MODE VENT - SIMV
[2022-07-26] MEDS: AMIODARONE HCL 200 MG TABLET PO SCH ×2 (11:53→18:02)
[2022-07-26] MEDS: VANCOMYCIN 750MG PREMIX 150 ML IV SCH (11:53)
[2022-07-26] MEDS: MORPHINE SULFATE 2 MG/ML CPJ (NOT FOR IM USE) IV PRN ×2 (11:54→15:07)
[2022-07-26] MEDS ORDERED: NALOXONE HCL 0.4MG/ML VIAL IV PRN (14:30)
[2022-07-26] MEDS: PHENYLEPHRINE 50 MG in DEXT 5% WATER 245 ML IV PRN (16:25)
[2022-07-27] VITALS (83 sets, daily range): BP systolic 87–121; BP diastolic 46–77
[2022-07-27] MEDS: IPRATROPIUM/ALBUTEROL 0.5-3(2.5)MG/3ML NEB HHN SCH ×4 (00:06→16:33)
[2022-07-27] MEDS: VANCOMYCIN 750MG PREMIX 150 ML IV SCH ×2 (05:08→23:39)
[2022-07-27] MEDS: MIDODRINE HCL 5MG TABLET PO SCH ×3 (05:08→21:11)
[2022-07-27] MEDS: METOCLOPRAMIDE HCL 10MG/2ML VIAL IV SCH ×4 (05:08→23:39)
[2022-07-27 06:33] LABS: BASOPHILS % 0.9 % (0.0-2.0); EOSINOPHILS % 2.7 % (0.0-5.0); HEMATOCRIT. 33.3 % (42.0-52.0); HEMOGLOBIN. 10.6 g/dL (14.0-18.0); LYMPHOCYTES % 9.3 % (20.0-50.0); MEAN CORPUSCULAR HEMOGLOBIN 29.9 pg (28.0-32.0); MEAN CORPUSCULAR VOLUME 93.8 fL (80.0-94.0); MEAN PLATELET VOLUME 10.7 fl (7.4-10.4); MONOCYTES % 14.1 % (2.0-8.0); PLATELET 241 x1000/uL (130-400); RED BLOOD CELL COUNT 3.55 mill/uL (4.7-6.1); RED CELL DISTRIBUTION WIDTH 17.8 % (11.6-14.6)
[2022-07-27] MEDS: MEROPENEM 1,000 MG in SODIUM CHLORIDE 0.9% 100 ML IV SCH ×3 (08:13→23:39)
[2022-07-27] MEDS: FUROSEMIDE 40MG/4ML VIAL IVP SCH (08:13)
[2022-07-27] MEDS: POLYETHYLENE GLYCOL 3350 (17GM) 1 DOSE PACK PO SCH (08:13)
[2022-07-27] MEDS: AMIODARONE HCL 200 MG TABLET PO SCH ×3 (08:13→17:17)
[2022-07-27] MEDS: LEVETIRACETAM 1000MG PREMIX 100 ML IV SCH ×2 (08:14→21:13)
[2022-07-27] MEDS: FAMOTIDINE 20MG/2ML VIAL IV SCH ×2 (08:14→21:11)
[2022-07-27] MEDS: ENOXAPARIN 60MG/0.6ML SYR SUBCUT SCH ×2 (08:15→21:00)
[2022-07-27 13:39] LABS: CHLORIDE 102 mEq/L (98-107)
[2022-07-27] MEDS: MORPHINE SULFATE 2 MG/ML CPJ (NOT FOR IM USE) IV PRN (21:10)
[2022-07-28] VITALS (35 sets, daily range): BP systolic 86–142; BP diastolic 47–93
[2022-07-28] MEDS: MORPHINE SULFATE 2 MG/ML CPJ (NOT FOR IM USE) IV PRN ×2 (04:11→21:07)
[2022-07-28] MEDS: MIDODRINE HCL 5MG TABLET PO SCH ×3 (05:23→21:08)
[2022-07-28] MEDS: METOCLOPRAMIDE HCL 10MG/2ML VIAL IV SCH ×3 (05:24→17:13)
[2022-07-28 06:11] LABS: HEMATOCRIT. 32.9 % (42.0-52.0); HEMOGLOBIN. 10.3 g/dL (14.0-18.0); MEAN CORPUSCULAR VOLUME 95.6 fL (80.0-94.0); MEAN PLATELET VOLUME 10.9 fl (7.4-10.4); PLATELET 196 x1000/uL (130-400); RED BLOOD CELL COUNT 3.44 mill/uL (4.7-6.1); RED CELL DISTRIBUTION WIDTH 17.3 % (11.6-14.6)
[2022-07-28 07:46] LABS: CHLORIDE 101 mEq/L (98-107)
[2022-07-28 07:53] LABS: BG CARBOXYHEMOGLOBIN 0.5 % (0.5-1.5); BG DEOXYHEMOGLOBIN 7.5 % (0.0-5.0); BG METHEMOGLOBIN 0.3 % (0.0-1.5); BG OXYGEN SATURATION 92.4 % (92.0-98.5); BG OXYHEMOGLOBIN 91.7 % (94.0-97.0); BG PCO2 48.9 mmHg (35.0-45.0); BG PH 7.472 (7.350-7.450); BG PO2 64.1 mmHg (75.0-100.0); BG SAMPLE SITE RIGHT RADIAL; BG VENT MODE VENT - SIMV
[2022-07-28] MEDS: IPRATROPIUM/ALBUTEROL 0.5-3(2.5)MG/3ML NEB HHN SCH ×4 (08:11→20:22)
[2022-07-28] MEDS: ENOXAPARIN 60MG/0.6ML SYR SUBCUT SCH ×2 (08:13→21:00)
[2022-07-28] MEDS: MEROPENEM 1,000 MG in SODIUM CHLORIDE 0.9% 100 ML IV SCH ×2 (08:13→17:00)
[2022-07-28] MEDS: LEVETIRACETAM 1000MG PREMIX 100 ML IV SCH ×2 (08:13→21:06)
[2022-07-28] MEDS: FAMOTIDINE 20MG/2ML VIAL IV SCH ×2 (08:14→21:07)
[2022-07-28] MEDS: FUROSEMIDE 40MG/4ML VIAL IVP SCH (08:14)
[2022-07-28] MEDS: AMIODARONE HCL 200 MG TABLET PO SCH ×3 (08:17→17:01)
[2022-07-28] MEDS: POLYETHYLENE GLYCOL 3350 (17GM) 1 DOSE PACK PO SCH (08:17)
[2022-07-28 12:39] LABS: NUCLEATED RED BLOOD CELLS 3 /100 WBC; PLATELET ESTIMATE NORMAL
[2022-07-28] MEDS: VANCOMYCIN 750MG PREMIX 150 ML IV SCH (17:00)
[2022-07-29] VITALS (37 sets, daily range): BP systolic 88–151; BP diastolic 47–83
[2022-07-29] MEDS: IPRATROPIUM/ALBUTEROL 0.5-3(2.5)MG/3ML NEB HHN SCH ×7 (00:03→23:46)
[2022-07-29] MEDS: MEROPENEM 1,000 MG in SODIUM CHLORIDE 0.9% 100 ML IV SCH ×3 (00:35→16:57)
[2022-07-29] MEDS: METOCLOPRAMIDE HCL 10MG/2ML VIAL IV SCH ×4 (00:35→17:01)
[2022-07-29] MEDS: MIDODRINE HCL 5MG TABLET PO SCH ×3 (05:27→21:18)
[2022-07-29] MEDS: MORPHINE SULFATE 2 MG/ML CPJ (NOT FOR IM USE) IV PRN (05:28)
[2022-07-29 06:01] LABS: HEMATOCRIT. 31.9 % (42.0-52.0); HEMOGLOBIN. 10.1 g/dL (14.0-18.0); MEAN CORPUSCULAR HEMOGLOBIN 29.6 pg (28.0-32.0); PLATELET 228 x1000/uL (130-400); RED BLOOD CELL COUNT 3.39 mill/uL (4.7-6.1)
[2022-07-29 06:25] LABS: CHLORIDE 102 mEq/L (98-107)
[2022-07-29 07:40] LABS: PLATELET ESTIMATE NORMAL
[2022-07-29] MEDS: FAMOTIDINE 20MG/2ML VIAL IV SCH ×2 (08:10→21:17)
[2022-07-29] MEDS: LEVETIRACETAM 1000MG PREMIX 100 ML IV SCH (08:10)
[2022-07-29] MEDS: ENOXAPARIN 60MG/0.6ML SYR SUBCUT SCH ×2 (08:10→21:21)
[2022-07-29] MEDS: AMIODARONE HCL 200 MG TABLET PO SCH ×3 (08:10→16:57)
[2022-07-29] MEDS: FUROSEMIDE 40MG/4ML VIAL IVP SCH (08:10)
[2022-07-29] MEDS: POLYETHYLENE GLYCOL 3350 (17GM) 1 DOSE PACK PO SCH (08:10)
[2022-07-29 10:18] LABS: BG BASE EXCESS 10.8 mmol/L (-2.0-2.0); BG DEOXYHEMOGLOBIN 9.8 % (0.0-5.0); BG FRACTION INSPIRED OXYGEN 50; BG HCO3 ACT 36.3 mmol/L (22.0-26.0); BG METHEMOGLOBIN 0.3 % (0.0-1.5); BG OXYGEN SATURATION 90.1 % (92.0-98.5); BG OXYHEMOGLOBIN 88.9 % (94.0-97.0); BG PCO2 53.1 mmHg (35.0-45.0); BG PH 7.453 (7.350-7.450); BG PO2 57.6 mmHg (75.0-100.0); BG SAMPLE SITE RIGHT BRACHIAL; BG TOTAL HEMOGLOBIN 11.4 g/dL (12.0-18.0); BG VENT MODE VENT - CPAP
[2022-07-29] MEDS ORDERED: LACTULOSE 20G/30ML UDC PO NR (11:30)
[2022-07-29] MEDS: VANCOMYCIN 750MG PREMIX 150 ML IV SCH (12:11)
[2022-07-29] MEDS: DOCUSATE SODIUM SUGAR FREE 100MG/10ML UDC NG SCH (12:12)
[2022-07-29] MEDS: RISPERIDONE 0.5MG TABLET PO SCH (12:12)
[2022-07-29] MEDS ORDERED: LACTULOSE 20G/30ML UDC PO PRN (21:00)
[2022-07-29] MEDS: LEVETIRACETAM 1,000 MG in SODIUM CHLORIDE 0.9% 100 ML IV SCH (21:17)
[2022-07-30] VITALS (16 sets, daily range): BP systolic 83–135; BP diastolic 48–71
[2022-07-30] MEDS: METOCLOPRAMIDE HCL 10MG/2ML VIAL IV SCH ×5 (00:05→23:57)
[2022-07-30] MEDS: MEROPENEM 1,000 MG in SODIUM CHLORIDE 0.9% 100 ML IV SCH ×4 (00:05→23:57)
[2022-07-30] MEDS: IPRATROPIUM/ALBUTEROL 0.5-3(2.5)MG/3ML NEB HHN SCH ×4 (03:50→20:26)
[2022-07-30 06:19] LABS: HEMATOCRIT. 32.2 % (42.0-52.0); HEMOGLOBIN. 10.3 g/dL (14.0-18.0); MEAN CORPUSCULAR HEMOGLOBIN 30.1 pg (28.0-32.0); MEAN CORPUSCULAR VOLUME 93.6 fL (80.0-94.0); MEAN PLATELET VOLUME 10.4 fl (7.4-10.4); PLATELET 247 x1000/uL (130-400); RED BLOOD CELL COUNT 3.44 mill/uL (4.7-6.1); RED CELL DISTRIBUTION WIDTH 17.2 % (11.6-14.6)
[2022-07-30 06:31] LABS: CHLORIDE 104 mEq/L (98-107)
[2022-07-30] MEDS: VANCOMYCIN 750MG PREMIX 150 ML IV SCH ×2 (07:10→23:57)
[2022-07-30] MEDS: MIDODRINE HCL 5MG TABLET PO SCH ×3 (07:10→21:02)
[2022-07-30] MEDS: RISPERIDONE 0.5MG TABLET PO SCH (08:16)
[2022-07-30] MEDS: FUROSEMIDE 40MG/4ML VIAL IVP SCH (08:16)
[2022-07-30] MEDS: DOCUSATE SODIUM SUGAR FREE 100MG/10ML UDC NG SCH (08:16)
[2022-07-30] MEDS: ENOXAPARIN 60MG/0.6ML SYR SUBCUT SCH ×2 (08:16→21:02)
[2022-07-30] MEDS: FAMOTIDINE 20MG/2ML VIAL IV SCH ×2 (08:16→21:02)
[2022-07-30] MEDS: AMIODARONE HCL 200 MG TABLET PO SCH ×3 (08:17→16:51)
[2022-07-30] MEDS: LEVETIRACETAM 1,000 MG in SODIUM CHLORIDE 0.9% 100 ML IV SCH ×2 (09:49→21:34)
[2022-07-30] MEDS ORDERED: SODIUM CHLORIDE 0.9% 500 ML IV NR (17:00)
[2022-07-30 20:02] LABS: NUCLEATED RED BLOOD CELLS 2 /100 WBC; PLATELET ESTIMATE NORMAL
[2022-07-31] VITALS (17 sets, daily range): BP systolic 83–127; BP diastolic 49–92
[2022-07-31] MEDS: IPRATROPIUM/ALBUTEROL 0.5-3(2.5)MG/3ML NEB HHN SCH ×6 (00:18→21:05)
[2022-07-31] MEDS: METOCLOPRAMIDE HCL 10MG/2ML VIAL IV SCH ×3 (06:26→12:59)
[2022-07-31] MEDS: MIDODRINE HCL 5MG TABLET PO SCH ×3 (06:26→21:29)
[2022-07-31 08:54] LABS: BG BASE EXCESS 9.5 mmol/L (-2.0-2.0); BG CARBOXYHEMOGLOBIN 0.7 % (0.5-1.5); BG DEOXYHEMOGLOBIN 7.3 % (0.0-5.0); BG FRACTION INSPIRED OXYGEN 50; BG HCO3 ACT 34.3 mmol/L (22.0-26.0); BG METHEMOGLOBIN 0.3 % (0.0-1.5); BG OXYGEN SATURATION 92.6 % (92.0-98.5); BG OXYHEMOGLOBIN 91.7 % (94.0-97.0); BG PCO2 47.8 mmHg (35.0-45.0); BG PH 7.474 (7.350-7.450); BG PO2 64.9 mmHg (75.0-100.0); BG SAMPLE SITE RIGHT RADIAL; BG TOTAL HEMOGLOBIN 10.6 g/dL (12.0-18.0); BG TOTAL RESPIRATORY RATE 25 b/min; BG VENT MODE VENT - SIMV
[2022-07-31] MEDS: MEROPENEM 1,000 MG in SODIUM CHLORIDE 0.9% 100 ML IV SCH ×3 (09:10→17:37)
[2022-07-31] MEDS: FAMOTIDINE 20MG/2ML VIAL IV SCH ×2 (09:10→21:29)
[2022-07-31] MEDS: LEVETIRACETAM 1,000 MG in SODIUM CHLORIDE 0.9% 100 ML IV SCH (09:10)
[2022-07-31] MEDS: RISPERIDONE 0.5MG TABLET PO SCH (09:11)
[2022-07-31] MEDS: FUROSEMIDE 40MG/4ML VIAL IVP SCH ×2 (09:11→16:55)
[2022-07-31] MEDS: AMIODARONE HCL 200 MG TABLET PO SCH ×3 (09:11→17:00)
[2022-07-31] MEDS: ENOXAPARIN 60MG/0.6ML SYR SUBCUT SCH ×2 (09:12→21:32)
[2022-07-31] MEDS: DOCUSATE SODIUM SUGAR FREE 100MG/10ML UDC NG SCH (09:13)
[2022-07-31] MEDS: VANCOMYCIN 750MG PREMIX 150 ML IV SCH (17:38)
[2022-07-31] MEDS: LEVETIRACETAM 500MG TABLET PO SCH (21:29)
[2022-08-01] VITALS (15 sets, daily range): BP systolic 76–97; BP diastolic 44–66
[2022-08-01] MEDS: METOCLOPRAMIDE HCL 10MG/2ML VIAL IV SCH ×4 (00:15→16:20)
[2022-08-01] MEDS: MIDODRINE HCL 5MG TABLET PO SCH ×3 (06:04→21:56)
[2022-08-01] MEDS: IPRATROPIUM/ALBUTEROL 0.5-3(2.5)MG/3ML NEB HHN SCH ×4 (07:34→21:34)
[2022-08-01] MEDS: LEVETIRACETAM 500MG TABLET PO SCH ×2 (08:14→21:57)
[2022-08-01] MEDS: FAMOTIDINE 20MG/2ML VIAL IV SCH ×2 (08:14→21:57)
[2022-08-01] MEDS: RISPERIDONE 0.5MG TABLET PO SCH (08:15)
[2022-08-01] MEDS: DOCUSATE SODIUM SUGAR FREE 100MG/10ML UDC NG SCH (08:15)
[2022-08-01] MEDS: ENOXAPARIN 60MG/0.6ML SYR SUBCUT SCH (08:15)
[2022-08-01] MEDS: FUROSEMIDE 40MG/4ML VIAL IVP SCH ×2 (08:16→16:21)
[2022-08-01] MEDS: AMIODARONE HCL 200 MG TABLET PO SCH ×3 (08:16→16:21)
[2022-08-01] MEDS: VANCOMYCIN 750MG PREMIX 150 ML IV SCH (13:08)
[2022-08-02] VITALS (11 sets, daily range): BP systolic 83–116; BP diastolic 40–59
[2022-08-02] MEDS: ENOXAPARIN 60MG/0.6ML SYR SUBCUT SCH ×3 (00:05→21:36)
[2022-08-02] MEDS: METOCLOPRAMIDE HCL 10MG/2ML VIAL IV SCH ×4 (00:06→16:41)
[2022-08-02] MEDS: IPRATROPIUM/ALBUTEROL 0.5-3(2.5)MG/3ML NEB HHN SCH ×6 (00:34→20:23)
[2022-08-02 05:03] LABS: CHLORIDE 105 mEq/L (98-107); VANCOMYCIN TROUGH 24.2 ug/mL (5.0-10.0)
[2022-08-02] MEDS: VANCOMYCIN 750MG PREMIX 150 ML IV SCH (05:57)
[2022-08-02] MEDS: MIDODRINE HCL 5MG TABLET PO SCH ×3 (06:01→21:27)
[2022-08-02 06:36] LABS: HEMATOCRIT. 29.4 % (42.0-52.0); HEMOGLOBIN. 9.3 g/dL (14.0-18.0); MEAN CORPUSCULAR HEMOGLOBIN 29.2 pg (28.0-32.0); MEAN CORPUSCULAR VOLUME 92.9 fL (80.0-94.0); MEAN PLATELET VOLUME 10.9 fl (7.4-10.4); PLATELET 242 x1000/uL (130-400); RED BLOOD CELL COUNT 3.17 mill/uL (4.7-6.1); RED CELL DISTRIBUTION WIDTH 17.4 % (11.6-14.6)
[2022-08-02] MEDS: AMIODARONE HCL 200 MG TABLET PO SCH ×3 (09:00→16:41)
[2022-08-02] MEDS: DOCUSATE SODIUM SUGAR FREE 100MG/10ML UDC NG SCH (09:35)
[2022-08-02] MEDS: RISPERIDONE 0.5MG TABLET PO SCH (09:36)
[2022-08-02] MEDS: LEVETIRACETAM 500MG TABLET PO SCH ×2 (09:36→21:28)
[2022-08-02] MEDS: FAMOTIDINE 20MG/2ML VIAL IV SCH (09:37)
[2022-08-02 13:57] LABS: PLATELET ESTIMATE NORMAL
[2022-08-02] MEDS: FAMOTIDINE 20MG TABLET PO SCH (21:28)
[2022-08-03] VITALS (19 sets, daily range): BP systolic 81–138; BP diastolic 48–80
[2022-08-03] MEDS: IPRATROPIUM/ALBUTEROL 0.5-3(2.5)MG/3ML NEB HHN SCH ×6 (00:40→20:31)
[2022-08-03] MEDS: METOCLOPRAMIDE HCL 10MG/2ML VIAL IV SCH ×5 (05:19→23:30)
[2022-08-03] MEDS: MIDODRINE HCL 5MG TABLET PO SCH ×3 (05:39→22:45)
[2022-08-03] MEDS: AMIODARONE HCL 200 MG TABLET PO SCH ×3 (08:25→18:12)
[2022-08-03] MEDS: ENOXAPARIN 60MG/0.6ML SYR SUBCUT SCH ×2 (08:25→22:46)
[2022-08-03] MEDS: LEVETIRACETAM 500MG TABLET PO SCH ×2 (08:25→22:44)
[2022-08-03] MEDS: DOCUSATE SODIUM SUGAR FREE 100MG/10ML UDC NG SCH (08:25)
[2022-08-03] MEDS: RISPERIDONE 0.5MG TABLET PO SCH (08:25)
[2022-08-03] MEDS: FAMOTIDINE 20MG TABLET PO SCH ×2 (08:25→22:45)
[2022-08-03] MEDS: VANCOMYCIN 750MG PREMIX 150 ML IV SCH (08:28)
[2022-08-03] MEDS ORDERED: FUROSEMIDE 40MG/4ML VIAL IVP NR (09:45)
[2022-08-03 11:04] LABS: BG BASE EXCESS 13.6 mmol/L (-2.0-2.0); BG CARBOXYHEMOGLOBIN 0.4 % (0.5-1.5); BG DEOXYHEMOGLOBIN 7.4 % (0.0-5.0); BG FRACTION INSPIRED OXYGEN 50; BG HCO3 ACT 38.5 mmol/L (22.0-26.0); BG METHEMOGLOBIN 0.5 % (0.0-1.5); BG OXYGEN SATURATION 92.5 % (92.0-98.5); BG OXYHEMOGLOBIN 91.7 % (94.0-97.0); BG PCO2 51.7 mmHg (35.0-45.0); BG PO2 63.9 mmHg (75.0-100.0); BG SAMPLE SITE RIGHT BRACHIAL; BG TOTAL HEMOGLOBIN 8.9 g/dL (12.0-18.0); BG TOTAL RESPIRATORY RATE 1910 b/min; BG VENT MODE VENT - SIMV
[2022-08-03] MEDS: ACETAMINOPHEN 325MG TABLET PO PRN (22:46)
[2022-08-04] VITALS (13 sets, daily range): BP systolic 81–113; BP diastolic 47–60
[2022-08-04] MEDS: IPRATROPIUM/ALBUTEROL 0.5-3(2.5)MG/3ML NEB HHN SCH ×6 (00:31→20:34)
[2022-08-04] MEDS: METOCLOPRAMIDE HCL 10MG/2ML VIAL IV SCH ×3 (07:04→17:16)
[2022-08-04] MEDS: MIDODRINE HCL 5MG TABLET PO SCH ×3 (07:05→21:17)
[2022-08-04 07:45] LABS: EOSINOPHILS % 3.6 % (0.0-5.0); HEMATOCRIT. 27.2 % (42.0-52.0); HEMOGLOBIN. 8.7 g/dL (14.0-18.0); MEAN CORPUSCULAR HEMOGLOBIN 29.7 pg (28.0-32.0); MEAN CORPUSCULAR VOLUME 92.9 fL (80.0-94.0); MONOCYTES % 10.1 % (2.0-8.0); NEUTROPHILS % 77.3 % (40.0-76.0); PLATELET 227 x1000/uL (130-400); RED BLOOD CELL COUNT 2.93 mill/uL (4.7-6.1); RED CELL DISTRIBUTION WIDTH 16.8 % (11.6-14.6)
[2022-08-04] MEDS: DOCUSATE SODIUM SUGAR FREE 100MG/10ML UDC NG SCH (08:04)
[2022-08-04] MEDS: FAMOTIDINE 20MG TABLET PO SCH ×2 (08:30→21:16)
[2022-08-04] MEDS: RISPERIDONE 0.5MG TABLET PO SCH (08:31)
[2022-08-04] MEDS: AMIODARONE HCL 200 MG TABLET PO SCH ×3 (08:31→16:45)
[2022-08-04] MEDS: LEVETIRACETAM 500MG TABLET PO SCH ×2 (08:32→21:16)
[2022-08-04] MEDS: VANCOMYCIN 750MG PREMIX 150 ML IV SCH (08:32)
[2022-08-04] MEDS: ENOXAPARIN 60MG/0.6ML SYR SUBCUT SCH ×2 (08:32→21:18)
[2022-08-04] MEDS ORDERED: FUROSEMIDE 40MG/4ML VIAL IV SCH (08:45)
[2022-08-04 09:23] LABS: CHLORIDE 104 mEq/L (98-107)
[2022-08-04] MEDS: FUROSEMIDE 40MG/4ML VIAL IVP SCH (16:45)
[2022-08-05] VITALS (12 sets, daily range): BP systolic 84–122; BP diastolic 46–64
[2022-08-05] MEDS: IPRATROPIUM/ALBUTEROL 0.5-3(2.5)MG/3ML NEB HHN SCH ×6 (00:45→19:58)
[2022-08-05] MEDS: METOCLOPRAMIDE HCL 10MG/2ML VIAL IV SCH ×4 (06:18→17:11)
[2022-08-05] MEDS: MIDODRINE HCL 5MG TABLET PO SCH ×3 (06:20→22:04)
[2022-08-05 06:31] LABS: BASOPHILS % 1.1 % (0.0-2.0); EOSINOPHILS % 3.2 % (0.0-5.0); HEMATOCRIT. 27.4 % (42.0-52.0); HEMOGLOBIN. 8.5 g/dL (14.0-18.0); LYMPHOCYTES % 7.7 % (20.0-50.0); MEAN CORPUSCULAR HEMOGLOBIN 28.9 pg (28.0-32.0); MEAN CORPUSCULAR VOLUME 93.1 fL (80.0-94.0); MEAN PLATELET VOLUME 10.7 fl (7.4-10.4); MONOCYTES % 11.5 % (2.0-8.0); NEUTROPHILS % 76.5 % (40.0-76.0); PLATELET 216 x1000/uL (130-400); RED BLOOD CELL COUNT 2.94 mill/uL (4.7-6.1); RED CELL DISTRIBUTION WIDTH 16.9 % (11.6-14.6)
[2022-08-05 07:06] LABS: CHLORIDE 103 mEq/L (98-107)
[2022-08-05] MEDS: AMIODARONE HCL 200 MG TABLET PO SCH ×3 (08:29→16:41)
[2022-08-05] MEDS: FUROSEMIDE 40MG/4ML VIAL IVP SCH ×2 (08:29→16:41)
[2022-08-05] MEDS: DOCUSATE SODIUM SUGAR FREE 100MG/10ML UDC NG SCH (08:30)
[2022-08-05] MEDS: FAMOTIDINE 20MG TABLET PO SCH ×2 (08:30→22:04)
[2022-08-05] MEDS: RISPERIDONE 0.5MG TABLET PO SCH (08:30)
[2022-08-05] MEDS: LEVETIRACETAM 500MG TABLET PO SCH ×2 (08:30→22:04)
[2022-08-05] MEDS: VANCOMYCIN 750MG PREMIX 150 ML IV SCH (08:36)
[2022-08-05] MEDS: ENOXAPARIN 60MG/0.6ML SYR SUBCUT SCH ×2 (08:37→22:04)
[2022-08-05 09:47] LABS: BG BASE EXCESS 13.1 mmol/L (-2.0-2.0); BG CARBOXYHEMOGLOBIN 0.1 % (0.5-1.5); BG DEOXYHEMOGLOBIN 7.5 % (0.0-5.0); BG FRACTION INSPIRED OXYGEN 75; BG HCO3 ACT 38.4 mmol/L (22.0-26.0); BG METHEMOGLOBIN 0.2 % (0.0-1.5); BG OXYGEN SATURATION 92.5 % (92.0-98.5); BG OXYHEMOGLOBIN 92.2 % (94.0-97.0); BG PO2 65.3 mmHg (75.0-100.0); BG SAMPLE SITE RIGHT RADIAL; BG TOTAL HEMOGLOBIN 9.4 g/dL (12.0-18.0); BG TOTAL RESPIRATORY RATE 17 b/min; BG VENT MODE VENT - SIMV
[2022-08-05] MEDS ORDERED: RACEPINEPHRINE 2.25% 0.5ML NEB VIAL HHN NR (15:00)
[2022-08-05] MEDS: ACETYLCYSTEINE 100MG/ML 10% VIAL 4ML INH SCH (15:32)
[2022-08-06] VITALS (61 sets, daily range): BP systolic 67–132; BP diastolic 37–72
[2022-08-06] MEDS: ACETYLCYSTEINE 100MG/ML 10% VIAL 4ML INH SCH ×4 (00:15→14:00)
[2022-08-06] MEDS: IPRATROPIUM/ALBUTEROL 0.5-3(2.5)MG/3ML NEB HHN SCH ×6 (00:15→20:47)
[2022-08-06] MEDS: METOCLOPRAMIDE HCL 10MG/2ML VIAL IV SCH ×4 (00:19→17:34)
[2022-08-06] MEDS ORDERED: RACEPINEPHRINE 2.25% 0.5ML NEB VIAL HHN NR (03:30)
[2022-08-06 06:18] LABS: BG BASE EXCESS 12.5 mmol/L (-2.0-2.0); BG DEOXYHEMOGLOBIN 20.4 % (0.0-5.0); BG FRACTION INSPIRED OXYGEN 100; BG HCO3 ACT 36.1 mmol/L (22.0-26.0); BG METHEMOGLOBIN 0.1 % (0.0-1.5); BG OXYGEN SATURATION 79.6 % (92.0-98.5); BG OXYHEMOGLOBIN 79.5 % (94.0-97.0); BG PCO2 42.4 mmHg (35.0-45.0); BG PH 7.548 (7.350-7.450); BG PO2 41.1 mmHg (75.0-100.0); BG SAMPLE SITE RIGHT RADIAL; BG TOTAL HEMOGLOBIN 9.6 g/dL (12.0-18.0); BG VENT MODE VENT - AC
[2022-08-06] MEDS ORDERED: FUROSEMIDE 40MG/4ML VIAL IVP NR (06:30)
[2022-08-06] MEDS: MIDODRINE HCL 5MG TABLET PO SCH ×3 (06:42→21:25)
[2022-08-06] MEDS: DOCUSATE SODIUM SUGAR FREE 100MG/10ML UDC NG SCH (08:38)
[2022-08-06] MEDS: FUROSEMIDE 40MG/4ML VIAL IVP SCH ×2 (08:38→17:34)
[2022-08-06] MEDS: FAMOTIDINE 20MG TABLET PO SCH ×2 (08:39→20:34)
[2022-08-06] MEDS: LEVETIRACETAM 500MG TABLET PO SCH ×2 (08:39→20:34)
[2022-08-06] MEDS: AMIODARONE HCL 200 MG TABLET PO SCH ×3 (08:39→17:34)
[2022-08-06] MEDS: RISPERIDONE 0.5MG TABLET PO SCH (08:39)
[2022-08-06] MEDS: VANCOMYCIN 750MG PREMIX 150 ML IV SCH (08:39)
[2022-08-06 11:37] LABS: HEMATOCRIT. 26.3 % (42.0-52.0); HEMOGLOBIN. 8.4 g/dL (14.0-18.0); MEAN CORPUSCULAR HEMOGLOBIN 29.3 pg (28.0-32.0); MEAN CORPUSCULAR VOLUME 91.4 fL (80.0-94.0); MEAN PLATELET VOLUME 10.2 fl (7.4-10.4); PLATELET 232 x1000/uL (130-400); RED BLOOD CELL COUNT 2.88 mill/uL (4.7-6.1); RED CELL DISTRIBUTION WIDTH 16.7 % (11.6-14.6)
[2022-08-06 11:48] LABS: CHLORIDE 100 mEq/L (98-107)
[2022-08-06] MEDS: ACETAMINOPHEN 325MG TABLET PO PRN ×2 (12:33→22:40)
[2022-08-06] MEDS ORDERED: NOREPINEPHRINE 8MG/250ML PMX 250 ML IV PRN (14:45)
[2022-08-06 17:58] LABS: INR 1.3; PROTHROMBIN TIME 13.5 sec (9.6-11.0)
[2022-08-06] MEDS: PHENYLEPHRINE 50 MG in DEXT 5% WATER 245 ML IV PRN (20:21)
[2022-08-06] MEDS: MEROPENEM 1,000 MG in SODIUM CHLORIDE 0.9% 100 ML IV SCH (21:56)
[2022-08-07] VITALS (93 sets, daily range): BP systolic 70–136; BP diastolic 38–97
[2022-08-07] MEDS: METOCLOPRAMIDE HCL 10MG/2ML VIAL IV SCH ×5 (00:23→23:21)
[2022-08-07] MEDS: IPRATROPIUM/ALBUTEROL 0.5-3(2.5)MG/3ML NEB HHN SCH ×6 (00:32→20:37)
[2022-08-07] MEDS: MIDODRINE HCL 5MG TABLET PO SCH ×3 (05:22→21:01)
[2022-08-07 05:42] LABS: HEMATOCRIT. 26.6 % (42.0-52.0); HEMOGLOBIN. 8.4 g/dL (14.0-18.0); MEAN CORPUSCULAR HEMOGLOBIN 29.4 pg (28.0-32.0); MEAN CORPUSCULAR VOLUME 93.1 fL (80.0-94.0); MEAN PLATELET VOLUME 10.9 fl (7.4-10.4); PLATELET 222 x1000/uL (130-400); RED BLOOD CELL COUNT 2.85 mill/uL (4.7-6.1); RED CELL DISTRIBUTION WIDTH 17.2 % (11.6-14.6)
[2022-08-07 06:27] LABS: NUCLEATED RED BLOOD CELLS 1 /100 WBC; PLATELET ESTIMATE NORMAL
[2022-08-07] MEDS: AMIODARONE HCL 200 MG TABLET PO SCH ×3 (08:09→17:15)
[2022-08-07] MEDS: LEVETIRACETAM 500MG TABLET PO SCH ×2 (08:09→20:55)
[2022-08-07] MEDS: RISPERIDONE 0.5MG TABLET PO SCH (08:09)
[2022-08-07] MEDS: FAMOTIDINE 20MG TABLET PO SCH ×2 (08:09→20:55)
[2022-08-07] MEDS: DOCUSATE SODIUM SUGAR FREE 100MG/10ML UDC NG SCH (08:09)
[2022-08-07] MEDS: MEROPENEM 1,000 MG in SODIUM CHLORIDE 0.9% 100 ML IV SCH ×2 (08:10→20:55)
[2022-08-07 09:13] LABS: BG CARBOXYHEMOGLOBIN 0.3 % (0.5-1.5); BG DEOXYHEMOGLOBIN 2.9 % (0.0-5.0); BG FRACTION INSPIRED OXYGEN 100; BG HCO3 ACT 35.3 mmol/L (22.0-26.0); BG METHEMOGLOBIN 0.3 % (0.0-1.5); BG OXYGEN SATURATION 97.1 % (92.0-98.5); BG OXYHEMOGLOBIN 96.5 % (94.0-97.0); BG PCO2 40.4 mmHg (35.0-45.0); BG PH 7.559 (7.350-7.450); BG PO2 93.5 mmHg (75.0-100.0); BG SAMPLE SITE RIGHT RADIAL; BG TOTAL HEMOGLOBIN 8.5 g/dL (12.0-18.0); BG VENT MODE VENT - AC
[2022-08-07] MEDS: FUROSEMIDE 40MG/4ML VIAL IVP SCH (09:37)
[2022-08-07 11:08] LABS: PLATELET ESTIMATE NORMAL
[2022-08-07] MEDS: PHENYLEPHRINE 50 MG in DEXT 5% WATER 245 ML IV PRN ×2 (11:52→22:45)
[2022-08-07] MEDS: ACETAMINOPHEN 325MG TABLET PO PRN (21:10)
[2022-08-08] VITALS (94 sets, daily range): BP systolic 65–123; BP diastolic 37–77
[2022-08-08] MEDS: IPRATROPIUM/ALBUTEROL 0.5-3(2.5)MG/3ML NEB HHN SCH ×6 (00:48→20:56)
[2022-08-08] MEDS: MIDODRINE HCL 5MG TABLET PO SCH ×3 (05:28→21:01)
[2022-08-08] MEDS: METOCLOPRAMIDE HCL 10MG/2ML VIAL IV SCH ×4 (05:28→23:32)
[2022-08-08 05:55] LABS: HEMATOCRIT. 25.6 % (42.0-52.0); HEMOGLOBIN. 8.4 g/dL (14.0-18.0); MEAN CORPUSCULAR HEMOGLOBIN 29.9 pg (28.0-32.0); MEAN CORPUSCULAR VOLUME 90.8 fL (80.0-94.0); MEAN PLATELET VOLUME 10.8 fl (7.4-10.4); PLATELET 229 x1000/uL (130-400); RED BLOOD CELL COUNT 2.83 mill/uL (4.7-6.1); RED CELL DISTRIBUTION WIDTH 16.9 % (11.6-14.6)
[2022-08-08 05:57] LABS: CHLORIDE 99 mEq/L (98-107)
[2022-08-08] MEDS: PHENYLEPHRINE 50 MG in DEXT 5% WATER 245 ML IV PRN ×2 (07:54→17:45)
[2022-08-08] MEDS: ACETYLCYSTEINE 100MG/ML 10% VIAL 4ML INH SCH ×2 (08:41→15:33)
[2022-08-08] MEDS: MEROPENEM 1,000 MG in SODIUM CHLORIDE 0.9% 100 ML IV SCH ×2 (09:17→20:36)
[2022-08-08] MEDS: FUROSEMIDE 40MG/4ML VIAL IVP SCH (09:17)
[2022-08-08] MEDS: FAMOTIDINE 20MG TABLET PO SCH ×2 (09:17→20:44)
[2022-08-08] MEDS: DOCUSATE SODIUM SUGAR FREE 100MG/10ML UDC NG SCH (09:17)
[2022-08-08] MEDS: LEVETIRACETAM 500MG TABLET PO SCH ×2 (09:17→20:45)
[2022-08-08] MEDS: RISPERIDONE 0.5MG TABLET PO SCH (09:18)
[2022-08-08] MEDS: AMIODARONE HCL 200 MG TABLET PO SCH ×3 (09:18→17:45)
[2022-08-08 09:30] LABS: PLATELET ESTIMATE NORMAL
[2022-08-08] MEDS: ACETAMINOPHEN 325MG TABLET PO PRN ×2 (17:49→23:33)
[2022-08-09] VITALS (96 sets, daily range): BP systolic 68–120; BP diastolic 42–79
[2022-08-09] MEDS: IPRATROPIUM/ALBUTEROL 0.5-3(2.5)MG/3ML NEB HHN SCH ×6 (00:30→20:25)
[2022-08-09] MEDS: ACETYLCYSTEINE 100MG/ML 10% VIAL 4ML INH SCH ×4 (00:31→20:20)
[2022-08-09] MEDS: PHENYLEPHRINE 50 MG in DEXT 5% WATER 245 ML IV PRN ×5 (00:50→21:57)
[2022-08-09 05:06] LABS: HEMATOCRIT. 27.8 % (42.0-52.0); HEMOGLOBIN. 8.8 g/dL (14.0-18.0); MEAN CORPUSCULAR HEMOGLOBIN 29.2 pg (28.0-32.0); MEAN CORPUSCULAR VOLUME 91.8 fL (80.0-94.0); PLATELET 231 x1000/uL (130-400); RED BLOOD CELL COUNT 3.02 mill/uL (4.7-6.1); RED CELL DISTRIBUTION WIDTH 16.9 % (11.6-14.6)
[2022-08-09] MEDS: METOCLOPRAMIDE HCL 10MG/2ML VIAL IV SCH ×4 (05:14→23:31)
[2022-08-09] MEDS: MIDODRINE HCL 5MG TABLET PO SCH ×3 (05:14→20:56)
[2022-08-09 05:18] LABS: CHLORIDE 98 mEq/L (98-107)
[2022-08-09 08:04] LABS: BG BASE EXCESS 7.4 mmol/L (-2.0-2.0); BG CARBOXYHEMOGLOBIN 0.3 % (0.5-1.5); BG DEOXYHEMOGLOBIN 3.2 % (0.0-5.0); BG HCO3 ACT 31.3 mmol/L (22.0-26.0); BG METHEMOGLOBIN 0.5 % (0.0-1.5); BG OXYGEN SATURATION 96.8 % (92.0-98.5); BG PCO2 41.2 mmHg (35.0-45.0); BG PH 7.498 (7.350-7.450); BG PO2 91.8 mmHg (75.0-100.0); BG SAMPLE SITE RIGHT RADIAL; BG TOTAL HEMOGLOBIN 9.4 g/dL (12.0-18.0); BG VENT MODE VENT - AC
[2022-08-09] MEDS: AMIODARONE HCL 200 MG TABLET PO SCH ×3 (09:10→17:23)
[2022-08-09] MEDS: FUROSEMIDE 40MG/4ML VIAL IVP SCH (09:10)
[2022-08-09] MEDS: MEROPENEM 1,000 MG in SODIUM CHLORIDE 0.9% 100 ML IV SCH ×2 (09:10→20:57)
[2022-08-09] MEDS: RISPERIDONE 0.5MG TABLET PO SCH (09:10)
[2022-08-09] MEDS: DOCUSATE SODIUM SUGAR FREE 100MG/10ML UDC NG SCH (09:11)
[2022-08-09] MEDS: LEVETIRACETAM 500MG TABLET PO SCH ×2 (09:11→20:56)
[2022-08-09] MEDS: FAMOTIDINE 20MG TABLET PO SCH ×2 (09:11→20:56)
[2022-08-09] MEDS ORDERED: VANCOMYCIN 750MG PREMIX 150 ML IV SCH (12:00)
[2022-08-09 13:53] LABS: NUCLEATED RED BLOOD CELLS 7 /100 WBC; PLATELET ESTIMATE NORMAL
[2022-08-09] MEDS: PHENYLEPHRINE 100 MG in DEXT 5% WATER 240 ML IV PRN (23:31)
[2022-08-10] VITALS (84 sets, daily range): BP systolic 80–134; BP diastolic 47–106
[2022-08-10] MEDS: ACETYLCYSTEINE 100MG/ML 10% VIAL 4ML INH SCH (00:22)
[2022-08-10] MEDS: METOCLOPRAMIDE HCL 10MG/2ML VIAL IV SCH ×3 (05:52→16:59)
[2022-08-10] MEDS: MIDODRINE HCL 5MG TABLET PO SCH ×3 (05:53→21:08)
[2022-08-10] MEDS: DOCUSATE SODIUM SUGAR FREE 100MG/10ML UDC NG SCH (08:15)
[2022-08-10] MEDS: RISPERIDONE 0.5MG TABLET PO SCH (08:15)
[2022-08-10] MEDS: MEROPENEM 1,000 MG in SODIUM CHLORIDE 0.9% 100 ML IV SCH ×2 (08:15→21:08)
[2022-08-10] MEDS: LEVETIRACETAM 500MG TABLET PO SCH ×2 (08:15→21:09)
[2022-08-10] MEDS: PHENYLEPHRINE 100 MG in DEXT 5% WATER 240 ML IV PRN ×2 (08:16→16:59)
[2022-08-10] MEDS: AMIODARONE HCL 200 MG TABLET PO SCH ×3 (08:16→16:59)
[2022-08-10] MEDS: FUROSEMIDE 40MG/4ML VIAL IVP SCH (09:20)
[2022-08-10] MEDS ORDERED: SODIUM CHLORIDE 0.9% 500 ML IV ONE (10:00)
[2022-08-10 11:19] LABS: HEMATOCRIT. 26.4 % (42.0-52.0); HEMOGLOBIN. 8.3 g/dL (14.0-18.0); MEAN CORPUSCULAR HEMOGLOBIN 29.1 pg (28.0-32.0); MEAN CORPUSCULAR VOLUME 92.7 fL (80.0-94.0); PLATELET 218 x1000/uL (130-400); RED BLOOD CELL COUNT 2.85 mill/uL (4.7-6.1); RED CELL DISTRIBUTION WIDTH 17.4 % (11.6-14.6)
[2022-08-10 12:14] LABS: CHLORIDE 95 mEq/L (98-107); NUCLEATED RED BLOOD CELLS 7 /100 WBC; PLATELET ESTIMATE NORMAL
[2022-08-11] VITALS (80 sets, daily range): BP systolic 78–108; BP diastolic 42–79
[2022-08-11] MEDS: METOCLOPRAMIDE HCL 10MG/2ML VIAL IV SCH ×4 (00:27→17:04)
[2022-08-11] MEDS: PHENYLEPHRINE 100 MG in DEXT 5% WATER 240 ML IV PRN ×2 (00:32→18:54)
[2022-08-11 05:40] LABS: HEMOGLOBIN. 8.7 g/dL (14.0-18.0); MEAN CORPUSCULAR HEMOGLOBIN 29.1 pg (28.0-32.0); MEAN CORPUSCULAR VOLUME 93.8 fL (80.0-94.0); PLATELET 225 x1000/uL (130-400); RED BLOOD CELL COUNT 2.98 mill/uL (4.7-6.1); RED CELL DISTRIBUTION WIDTH 17.4 % (11.6-14.6)
[2022-08-11 05:52] LABS: CHLORIDE 100 mEq/L (98-107)
[2022-08-11] MEDS: MIDODRINE HCL 5MG TABLET PO SCH ×3 (06:17→21:32)
[2022-08-11] MEDS ORDERED: VANCOMYCIN 1G PREMIX 200 ML IV NR (09:00)
[2022-08-11 09:12] LABS: NUCLEATED RED BLOOD CELLS 8 /100 WBC
[2022-08-11 09:23] LABS: PLATELET ESTIMATE NORMAL
[2022-08-11] MEDS: DOCUSATE SODIUM SUGAR FREE 100MG/10ML UDC NG SCH (09:32)
[2022-08-11] MEDS: MEROPENEM 1,000 MG in SODIUM CHLORIDE 0.9% 100 ML IV SCH ×2 (09:32→21:03)
[2022-08-11] MEDS: RISPERIDONE 0.5MG TABLET PO SCH (09:33)
[2022-08-11] MEDS: LEVETIRACETAM 500MG TABLET PO SCH ×2 (09:33→21:31)
[2022-08-11] MEDS: AMIODARONE HCL 200 MG TABLET PO SCH (09:37)
[2022-08-11] MEDS ORDERED: SODIUM POLYSTYRENE SULFONATE 15 G/60 ML BOT PEG NR (12:00)
[2022-08-11 13:02] LABS: BG BASE EXCESS 5.8 mmol/L (-2.0-2.0); BG CARBOXYHEMOGLOBIN 0.3 % (0.5-1.5); BG DEOXYHEMOGLOBIN 10.5 % (0.0-5.0); BG FRACTION INSPIRED OXYGEN 100; BG HCO3 ACT 31.3 mmol/L (22.0-26.0); BG METHEMOGLOBIN 0.3 % (0.0-1.5); BG OXYGEN SATURATION 89.4 % (92.0-98.5); BG OXYHEMOGLOBIN 88.9 % (94.0-97.0); BG PCO2 50.7 mmHg (35.0-45.0); BG PH 7.408 (7.350-7.450); BG PO2 62.2 mmHg (75.0-100.0); BG SAMPLE SITE RIGHT RADIAL; BG TOTAL HEMOGLOBIN 9.3 g/dL (12.0-18.0); BG VENT MODE VENT - AC
[2022-08-12] VITALS (104 sets, daily range): BP systolic 74–116; BP diastolic 40–65
[2022-08-12] MEDS: METOCLOPRAMIDE HCL 10MG/2ML VIAL IV SCH ×4 (00:27→17:24)
[2022-08-12] MEDS: MIDODRINE HCL 5MG TABLET PO SCH ×3 (05:35→21:58)
[2022-08-12 06:26] LABS: HEMATOCRIT. 26.5 % (42.0-52.0); HEMOGLOBIN. 8.4 g/dL (14.0-18.0); MEAN CORPUSCULAR HEMOGLOBIN 29.5 pg (28.0-32.0); MEAN CORPUSCULAR VOLUME 93.2 fL (80.0-94.0); MEAN PLATELET VOLUME 10.7 fl (7.4-10.4); PLATELET 200 x1000/uL (130-400); RED BLOOD CELL COUNT 2.85 mill/uL (4.7-6.1); RED CELL DISTRIBUTION WIDTH 17.4 % (11.6-14.6)
[2022-08-12 06:37] LABS: CHLORIDE 99 mEq/L (98-107)
[2022-08-12] MEDS: AMIODARONE HCL 200 MG TABLET PO SCH (08:21)
[2022-08-12] MEDS: LEVETIRACETAM 500MG TABLET PO SCH ×2 (08:21→21:58)
[2022-08-12] MEDS: RISPERIDONE 0.5MG TABLET PO SCH (08:21)
[2022-08-12] MEDS: DOCUSATE SODIUM SUGAR FREE 100MG/10ML UDC NG SCH (08:21)
[2022-08-12] MEDS: PHENYLEPHRINE 100 MG in DEXT 5% WATER 240 ML IV PRN ×2 (09:34→17:46)
[2022-08-12 14:05] LABS: NUCLEATED RED BLOOD CELLS 11 /100 WBC
[2022-08-12 14:06] LABS: PLATELET ESTIMATE NORMAL
[2022-08-12] MEDS: MEROPENEM 1,000 MG in SODIUM CHLORIDE 0.9% 100 ML IV SCH ×2 (15:52→21:58)
[2022-08-12] MEDS: NOREPINEPHRINE 8 MG in DEXTROSE 5% WATER 250 ML IV PRN (17:46)
[2022-08-13] VITALS (116 sets, daily range): BP systolic 58–132; BP diastolic 29–107
[2022-08-13] MEDS: METOCLOPRAMIDE HCL 10MG/2ML VIAL IV SCH ×3 (01:01→12:36)
[2022-08-13] MEDS: PHENYLEPHRINE 100 MG in DEXT 5% WATER 240 ML IV PRN ×2 (03:30→10:39)
[2022-08-13] MEDS: NOREPINEPHRINE 8 MG in DEXTROSE 5% WATER 250 ML IV PRN ×3 (03:30→10:38)
[2022-08-13 05:49] LABS: HEMOGLOBIN. 8.9 g/dL (14.0-18.0); MEAN CORPUSCULAR HEMOGLOBIN 29.1 pg (28.0-32.0); MEAN CORPUSCULAR VOLUME 98.6 fL (80.0-94.0); MEAN PLATELET VOLUME 11.3 fl (7.4-10.4); PLATELET 211 x1000/uL (130-400); RED BLOOD CELL COUNT 3.04 mill/uL (4.7-6.1); RED CELL DISTRIBUTION WIDTH 18.4 % (11.6-14.6)
[2022-08-13] MEDS: MIDODRINE HCL 5MG TABLET PO SCH ×2 (06:33→13:12)
[2022-08-13] MEDS: MEROPENEM 1,000 MG in SODIUM CHLORIDE 0.9% 100 ML IV SCH ×2 (06:34→13:12)
[2022-08-13] MEDS ORDERED: SODIUM POLYSTYRENE SULFONATE 15 G/60 ML BOT PO NR (07:45)
[2022-08-13] MEDS: VASOPRESSIN 20 UNIT in SODIUM CHLORIDE 0.9% 99 ML IV PRN ×2 (08:00→14:46)
[2022-08-13 08:08] LABS: BG BASE EXCESS -15.5 mmol/L (-2.0-2.0); BG CARBOXYHEMOGLOBIN 0.2 % (0.5-1.5); BG DEOXYHEMOGLOBIN 39.5 % (0.0-5.0); BG FRACTION INSPIRED OXYGEN 100; BG METHEMOGLOBIN 0.7 % (0.0-1.5); BG OXYGEN SATURATION 60.1 % (92.0-98.5); BG OXYHEMOGLOBIN 59.6 % (94.0-97.0); BG PCO2 62.6 mmHg (35.0-45.0); BG PH 6.997 (7.350-7.450); BG PO2 50.4 mmHg (75.0-100.0); BG SAMPLE SITE RIGHT FEMORAL; BG TOTAL HEMOGLOBIN 7.7 g/dL (12.0-18.0); BG VENT MODE VENT - AC
[2022-08-13] MEDS: RISPERIDONE 0.5MG TABLET PO SCH (08:21)
[2022-08-13] MEDS: LEVETIRACETAM 500MG TABLET PO SCH (08:21)
[2022-08-13] MEDS: DOCUSATE SODIUM SUGAR FREE 100MG/10ML UDC NG SCH (08:21)
[2022-08-13] MEDS: EPINEPHRINE 10 MG in SODIUM CHLORIDE 0.9% 240 ML IV PRN ×3 (08:45→14:46)
[2022-08-13] MEDS ORDERED: SODIUM BICARBONATE 8.4% 1 MEQ/ML 50ML SYR IV NR (09:00)
[2022-08-13 10:11] LABS: BG BASE EXCESS -12.9 mmol/L (-2.0-2.0); BG CARBOXYHEMOGLOBIN 1.3 % (0.5-1.5); BG DEOXYHEMOGLOBIN 22.8 % (0.0-5.0); BG FRACTION INSPIRED OXYGEN 100; BG HCO3 ACT 16.4 mmol/L (22.0-26.0); BG METHEMOGLOBIN 0.3 % (0.0-1.5); BG OXYGEN SATURATION 76.8 % (92.0-98.5); BG OXYHEMOGLOBIN 75.6 % (94.0-97.0); BG PH 7.077 (7.350-7.450); BG PO2 60.9 mmHg (75.0-100.0); BG SAMPLE SITE RIGHT FEMORAL; BG TOTAL HEMOGLOBIN 7.9 g/dL (12.0-18.0); BG VENT MODE VENT - AC
[2022-08-13] MEDS ORDERED: SODIUM BICARBONATE 8.4% 1 MEQ/ML 50ML SYR IV SCH (10:30)
[2022-08-13] MEDS ORDERED: NOREPINEPHRINE 32 MG in DEXT 5% WATER 218 ML IV PRN (11:00)
[2022-08-13] MEDS ORDERED: SODIUM BICARBONATE 100 MEQ in SODIUM CHLORIDE 0.45% 1,000 ML IV SCH (12:00)
[2022-08-13] MEDS ORDERED: VANCOMYCIN 1G PREMIX 200 ML IV NR (14:00)
[2022-08-13 14:19] LABS: NUCLEATED RED BLOOD CELLS 7 /100 WBC; PLATELET ESTIMATE NORMAL
[2022-08-14] MEDS ORDERED: MEROPENEM 1000MG in NORMAL SALINE 100ML IV SCH ×2
== END 2022-08-13 15:10 | DRG 4 ==
LOC: ER 13:13 → MICUNO 17:28 → EDBEDREQSVC 17:32 → EDBEDREQTM 17:32 → EDBEDREQ 17:32 → ENRESERV 20:44 → 5EST 07-30 02:29 → MICUNO 08-06 07:25
PROVIDERS: ADMIT Internal Medicine Pulmonary Disease; ATTEND Internal Medicine Pulmonary Disease
PROC: 5A1955Z Respiratory Ventilation, Greater than 96 Consecutive Hours (ICD-10-PCS; principal; 2022-07-12)
PROC: 5A12012 Performance of Cardiac Output, Single, Manual (ICD-10-PCS; 2022-07-12)
PROC: 0BH17EZ Insertion of Endotracheal Airway into Trachea, Via Natural or Artificial Opening (ICD-10-PCS; 2022-07-12)
PROC: 4A00X4Z Measurement of Central Nervous Electrical Activity, External Approach (ICD-10-PCS; 2022-07-13)
PROC: 4A00X4Z Measurement of Central Nervous Electrical Activity, External Approach (ICD-10-PCS; 2022-07-20)
PROC: 0B110F4 Bypass Trachea to Cutaneous with Tracheostomy Device, Open Approach (ICD-10-PCS; 2022-07-21)
PROC: 0DH63UZ Insertion of Feeding Device into Stomach, Percutaneous Approach (ICD-10-PCS; 2022-07-22)
PROC: 05H633Z Insertion of Infusion Device into Left Subclavian Vein, Percutaneous Approach (ICD-10-PCS; 2022-07-26)
PROC: B547ZZA Ultrasonography of Left Subclavian Vein, Guidance (ICD-10-PCS; 2022-07-26)
PROC: 4A00X4Z Measurement of Central Nervous Electrical Activity, External Approach (ICD-10-PCS; 2022-08-05)
PROC: 0W993ZZ Drainage of Right Pleural Cavity, Percutaneous Approach (ICD-10-PCS; 2022-08-07)
PROC: 5A12012 Performance of Cardiac Output, Single, Manual (ICD-10-PCS; 2022-08-13)
DX: A41.2 Sepsis due to unspecified staphylococcus (principal); J18.9 Pneumonia, unspecified organism; J96.01 Acute respiratory failure with hypoxia; E43 Unspecified severe protein-calorie malnutrition; E87.1 Hypo-osmolality and hyponatremia; N39.0 Urinary tract infection, site not specified; I42.9 Cardiomyopathy, unspecified; Z99.11 Dependence on respirator [ventilator] status; E87.20 Acidosis, unspecified; N17.9 Acute kidney failure, unspecified; J44.0 Chronic obstructive pulmonary disease with (acute) lower respiratory infection; G93.40 Encephalopathy, unspecified; D69.6 Thrombocytopenia, unspecified; K57.90 Diverticulosis of intestine, part unspecified, without perforation or abscess without bleeding; I48.0 Paroxysmal atrial fibrillation; I11.0 Hypertensive heart disease with heart failure; I50.9 Heart failure, unspecified; K26.9 Duodenal ulcer, unspecified as acute or chronic, without hemorrhage or perforation; D53.9 Nutritional anemia, unspecified; J45.909 Unspecified asthma, uncomplicated; E87.5 Hyperkalemia; G40.901 Epilepsy, unspecified, not intractable, with status epilepticus; I49.1 Atrial premature depolarization; M41.9 Scoliosis, unspecified; I77.1 Stricture of artery; B96.89 Other specified bacterial agents as the cause of diseases classified elsewhere; F17.200 Nicotine dependence, unspecified, uncomplicated; R13.12 Dysphagia, oropharyngeal phase; Z86.73 Personal history of transient ischemic attack (TIA), and cerebral infarction without residual deficits; Z86.711 Personal history of pulmonary embolism; Z68.22 Body mass index [BMI] 22.0-22.9, adult; Z20.822 Contact with and (suspected) exposure to COVID-19; Z87.11 Personal history of peptic ulcer disease; Z59.00 Homelessness unspecified; Z79.899 Other long term (current) drug therapy; Z68.21 Body mass index [BMI] 21.0-21.9, adult
CPT/HCPCS: 31500; 32555; 36415; 36573; 36600; 70496; 70498; 71045; 71275; 74018; 76604; 76700; 80048; 80053; 80061; 80162; 80202; 80305; 80320; 81003; 82040; 82248; 82375; 82533; 82553; 82607; 82728; 82805; 82962; 83540; 83550; 83605; 83615; 83735; 84100; 84443; 84484; 85025; 85027; 85044; 85379; 87070; 87077; 87106; 87186; 87426; 88108; 93005; 93306; 94002; 94003; 94640; 95816; 97161; 99291; A6261; C1725; C9803; J0282; J0290; J0692; J0696; J1100; J1160; J1650; J1940; J1953; J2060; J2185; J2250; J2270; J2370; J2405; J2543; J2704; J2765; J3010; J3370; J3480; J3490; J7050; J7060; J7608; Q9967; A5200; G0480